=== PATIENT | male | born 1985 | race Two or more races ===

== ENCOUNTER 2023-10-30 18:38 | Inpatient (IN) | payer OTHER, SELFPAY ==
[2023-10-30] VITALS (18 sets, daily range): BP systolic 68–128; BP diastolic 34–72; PULSE 88–126; RESP 16–20; TEMP 36.9–37.9; O2SAT 90–98; BMI 34.5
--- NOTE | 2023-10-30 | ECG_ITS ---
Test Reason : CHEST PAIN Blood Pressure : / mmHG Vent. Rate : 117 BPM Atrial Rate : 117 BPM P-R Int : 132 ms QRS Dur : 084 ms QT Int : 300 ms P-R-T Axes : 047 029 016 degrees QTc Int : 418 ms Sinus tachycardia Otherwise normal ECG No previous ECGs available Referred By: Generic ED Physician Electronically Signed By:Ambrosio Casey
--- NOTE | ~2023-10-30 | XR_ITS ---
EXAMINATION: XR CHEST CLINICAL INFORMATION: Pneumonia COMPARISON: None available. TECHNIQUE: Frontal view of the chest was obtained. FINDINGS: There is mild cardiac prominence. No evidence of CHF. There is dense consolidation seen in the right mid to upper lung. The left lung is clear. No pleural effusions. XR/XR chest 1V IMPRESSION: Right upper lobe pneumonia.
--- NOTE | ~2023-10-30 | CT_ITS ---
EXAMINATION: CT ANGIOGRAM OF THE CHEST WITH AND WITHOUT CONTRAST (CT PULMONARY ANGIOGRAM FOR PE) CT ABDOMEN AND PELVIS WITHOUT AND WITH CONTRAST CLINICAL INFORMATION: Reason for Exam Hypoxia/ Elevated lactic COMPARISON: Chest x-ray 10/30/2023 TECHNIQUE: Prior to contrast administration, noncontrast localization images were obtained. Noncontrast imaging of the abdomen and pelvis was also performed. Subsequently, multidetector volumetric imaging was performed from the thoracic inlet to the pubic symphysis through the chest, abdomen, and pelvis following the administration of 85 mL Omnipaque 350 intravenous contrast. Images through the chest were obtained during the pulmonary arterial phase of contrast enhancement. The abdomen and pelvis were imaged during the portal venous phase. No contrast reaction reported Sagittal, coronal, and MIP oblique sagittal (through the chest only) reformatted images were obtained on the CT workstation, uploaded to PACS, and reviewed. This CT examination was performed using dose optimization techniques as appropriate, variously including the following: *Automated exposure control *Adjustment of mA and/or kV according to patient size (this includes techniques or standardized protocols for targeted exams where dose is matched to indication/reason for exam; i.e. extremities or head) *Use of iterative reconstruction technique Total exam dose-length product: 1958 mGy-cm FINDINGS: QUALITY OF STUDY/CONTRAST BOLUS: Satisfactory. PULMONARY ARTERIES: No central or proximal segmental pulmonary embolus is seen. There is limited evaluation of the more distal vasculature due to bolus timing and respiratory motion artifact. THORACIC AORTA: No aneurysm. LUNG: There is dense consolidation within the predominantly posterior right upper lobe, suspicious for pneumonia. Groundglass opacity is present in the right middle lobe. Additional patchy consolidation is present in the superior and posterior right lower lobe. Mild dependent opacity in the posterior left upper lobe could reflect mild consolidation or atelectasis. PLEURA: No pleural effusion or pneumothorax. MEDIASTINUM: The visualized thyroid gland is unremarkable. Mildly prominent paratracheal and subcarinal lymph nodes are noted, which may be reactive. Cardiac size is within normal limits; no pericardial effusion. CHEST WALL/AXILLA: No axillary or internal mammary lymphadenopathy. ABDOMEN/PELVIS: LIVER, GALLBLADDER AND BILIARY TREE: The liver is mildly enlarged measuring approximately 21 cm in length. No focal hepatic lesion or biliary ductal dilatation is present. Questionable slight mural prominence of the gallbladder. No densely calcified gallstones are seen. PANCREAS: Normal; no mass or surrounding fluid. SPLEEN: Normal size. No focal lesion. ADRENAL GLANDS: Normal; no mass. KIDNEYS AND URETERS: Bilateral nephrograms are symmetric. No hydronephrosis or obstructing calculus identified. GASTROINTESTINAL TRACT: No evidence of bowel obstruction. There is mural prominence throughout the collapsed descending and sigmoid colon which could be due to underdistention, though the possibility of a mild colitis cannot be excluded. The appendix is unremarkable. No free fluid or free air is seen. ABDOMINAL WALL: No significant hernia is appreciated. LYMPHOVASCULAR STRUCTURES: No lymphadenopathy. The aorta is unremarkable. BLADDER: No focal mass or wall thickening seen. No bladder calculi. PELVIC VISCERA: Unremarkable. OSSEOUS STRUCTURES: No acute or suspicious osseous abnormality. CT/CT abdomen pelvis wo/w IV con IMPRESSION: 1. No central or proximal segmental pulmonary embolus identified. Limited evaluation of the more distal vasculature due to bolus timing and respiratory motion artifact. 2. Dense consolidation in the right upper lobe, suspicious for pneumonia. Additional patchy consolidation in the right lower lobe. Radiographic follow-up is recommended after treatment/resolution of symptoms. 3. Mildly prominent mediastinal lymph nodes, which may be reactive. 4. Questionable slight mural prominence of the gallbladder, of uncertain clinical significance. If there is clinical concern for cholecystitis, this would be better assessed with ultrasound. 5. Mural prominence of the descending and sigmoid colon which could be due to underdistention, though the possibility of a mild colitis cannot be excluded. VTE: negative.
--- NOTE | 2023-10-30 18:52 | PC.NURSE ---
Denies SI/Hi, placed on 2 liters NC sating 95%
--- NOTE | 2023-10-30 19:31 | PC.NURSE ---
this rn assumed care of pt, pt from [facility] on sec. 12 reporting onset of fever, chills, body ache and headache x2 days, reports he in unsure of if any residents are sick. pt currently denies si/hi. pt changed into green gown for safety, sitter at bedside. pt swabbed and sent to lab.
--- NOTE | 2023-10-30 20:00 | PC.NURSE ---
Spenser LYNN aware of pt vital signs at this time, Spenser LYNN at bedside.
[2023-10-30 20:04] LABS: Influenza A PCR NEGATIVE (Negative); Influenza B PCR NEGATIVE (Negative); Resp Syncy Virus RNA Qual PCR NEGATIVE (Negative); SARS COV2 PCR INHOUSE NEGATIVE (Negative)
[2023-10-30] MEDS: Albuterol/Iprat 2.5/0.5MG 3 ML AMPUL.NEB INHALE (20:10)
[2023-10-30] MEDS: 0.9 % Sodium Chloride 1,000 ML 999 ML IV ×4 (20:20→21:34)
[2023-10-30 20:21] LABS: Basophils Absolute Auto 0.1 X10*3/uL (0.0-0.2); Basophils Percent Auto 0.3 % (0-2); Eosinophils Percent Auto 0.1 % (0-4); Hematocrit 36.2 % (42.0-52.0); Hemoglobin 12.3 g/dl (14.0-18.0); Imm Gran Abs Auto 0.17 X10*3/uL (0.00-0.03); Lymphocytes Absolute Auto 0.9 X10*3/uL (1.2-4.9); Lymphocytes Percent Auto 5.3 % (20-40); MANUAL DIFF FLAG SCAN; Mean Corpuscular Hemoglobin 25.5 pg (27.0-33.0); Mean Corpuscular Volume 74.9 fL (80.0-98.0); Mean Platelet Volume 10.8 fL (9.4-12.4); Monocytes Absolute Auto 1.9 X10*3/uL (0.1-1.2); Monocytes Percent Auto 11.3 % (2-11); Platelet Count 193 X10*3/uL (160-400); Red Blood Count 4.83 X10*6/uL (4.60-5.80); Red Cell Distribution Width 15.3 % (11.0-16.0); SCAN SMEAR FLAG 1
--- NOTE | 2023-10-30 20:31 | ED.GENADULT ---
HPI - General Adult General Chief complaint: Upper Respiratory Symptoms Stated complaint: Bodyaches, from [place] Time Seen by Provider: 10/30/23 19:54 Source: patient Mode of arrival: ambulatory Limitations: no limitations History of Present Illness HPI narrative: 38-year-old male with history of asthma can substance abuse presents to the ED for URI symptoms for couple of days. Patient states body aches, chills, night sweats, and coughing. Patient states last drug use was 5 years ago. Related Data Home Medications ?Medication ?Instructions ?Recorded ?Confirmed albuterol sulfate 90 mcg/actuation 2 puff inhalation Q4-6H PRN sob 10/31/23 10/31/23 aerosol inhaler (Ventolin HFA) alprazolam 0.5 mg tablet 1 mg PO TID 10/31/23 10/31/23 atorvastatin 80 mg tablet 80 mg PO DAILY 10/31/23 10/31/23 buprenorphine 8 mg-naloxone 2 mg 1 film sublingual TID 10/31/23 10/31/23 sublingual film (Suboxone) bupropion HCl 75 mg tablet 75 mg PO BID 10/31/23 10/31/23 clonidine HCl 0.1 mg tablet 0.1 mg PO TID 10/31/23 10/31/23 diphenhydramine HCl 50 mg capsule 50 mg PO BEDTIME PRN Rash 10/31/23 10/31/23 (Banophen) divalproex 500 mg tablet,delayed 500 mg PO TID 10/31/23 10/31/23 release docusate sodium 50 mg capsule 50 mg PO BID 10/31/23 10/31/23 mirtazapine 15 mg tablet 15 mg PO BEDTIME 10/31/23 10/31/23 montelukast 10 mg tablet 10 mg PO DAILY 10/31/23 10/31/23 multivitamin 1 tab PO DAILY 10/31/23 10/31/23 prazosin 1 mg capsule 7 mg PO BEDTIME 10/31/23 10/31/23 quetiapine 200 mg tablet 200 mg PO BEDTIME 10/31/23 10/31/23 Allergies Allergy/AdvReac Type Severity Reaction Status Date / Time lactase [From Dairy Aid] AdvReac Unknown Verified 10/30/23 18:49 Review of Systems Review of Systems: Coughing, body aches, night sweats, chills Yes all other systems are reviewed and are negative [facility] Past Medical History Medical History (Updated 10/31/23 @ 02:10 by LEAH Kline) History of substance abuse Anxiety Social History Social History Patient Tobacco Use Status: Never used Tobacco Smoked in Last 30 Days: No Use of substances other than those prescribed or required for medical reasons: No Currently Displaying Signs/Symptoms of Drug Intoxication Withdrawal: No Advance Directives: No Advance Directives Information Provided: No Nutrition Risks: No Nutritional Risk Physical Exam ED Vital Signs: Vital Signs - 24 hr 10/30/23 18:48 10/30/23 19:20 10/30/23 19:34 Temperature 100.2 F 99.6 F Pulse Rate 116 H 107 H Respiratory Rate 18 20 Blood Pressure 122/72 104/55 L Pulse Oximetry 92 93 93 Oxygen Delivery Method Room Air Room Air Room Air Oxygen Flow Rate 10/30/23 20:21 10/30/23 20:36 10/30/23 20:40 Temperature 98.9 F Pulse Rate 98 100 Respiratory Rate 18 20 Blood Pressure 94/47 L Pulse Oximetry 91 L 94 Oxygen Delivery Method Room Air Nasal Cannula Oxygen Flow Rate 2 10/30/23 21:40 10/30/23 22:26 10/30/23 22:36 Temperature 98.8 F Pulse Rate 98 89 91 Respiratory Rate 20 20 18 Blood Pressure 76/34 L 78/36 L 71/36 L Pulse Oximetry 96 98 98 Oxygen Delivery Method Nasal Cannula Nasal Cannula Nasal Cannula Oxygen Flow Rate 2 2 2 10/30/23 22:40 10/30/23 22:52 10/30/23 23:09 Temperature 98.4 F Pulse Rate 92 91 91 Respiratory Rate 17 19 16 Blood Pressure 68/38 L 86/41 L 86/41 L Pulse Oximetry 97 96 97 Oxygen Delivery Method Nasal Cannula Nasal Cannula Nasal Cannula Oxygen Flow Rate 2 2 2 10/30/23 23:24 10/30/23 23:29 10/30/23 23:37 Temperature Pulse Rate 89 88 90 Respiratory Rate Blood Pressure 77/36 L 79/35 L 82/45 L Pulse Oximetry Oxygen Delivery Method Oxygen Flow Rate 10/30/23 23:46 10/30/23 23:56 10/31/23 00:05 Temperature Pulse Rate 91 88 88 Respiratory Rate Blood Pressure 98/51 L 110/66 114/62 Pulse Oximetry Oxygen Delivery Method Oxygen Flow Rate 10/31/23 00:15 10/31/23 00:21 10/31/23 00:29 Temperature Pulse Rate 90 90 83 Respiratory Rate Blood Pressure 101/59 L 106/61 121/71 Pulse Oximetry Oxygen Delivery Method Oxygen Flow Rate 10/31/23 00:41 Temperature Pulse Rate 86 Respiratory Rate Blood Pressure 119/71 Pulse Oximetry Oxygen Delivery Method Oxygen Flow Rate BMI result Body Mass Index 34.5 Const General: cooperative, healthy appearing, comfortable, no acute distress, well developed, alert and awake Orientation/consciousness: oriented to person, oriented to place, oriented to time and patient oriented x3 [facility] Head: Yes normal to inspection, Yes No palpable skull fracture present, Yes normocephalic, Yes atraumatic and No abrasion Eyes General: appearance normal, both eyes and all related structures Neck Neck: Yes normal visual inspection, Yes full ROM, Yes no lymphadenopathy, Yes no meningeal signs, Yes trachea midline, Yes supple, No anterior neck swelling and No tender Chest Chest palpation & inspection: normal inspection of the chest and normal palpation of entire chest wall Resp Auscultation: wheezes (positive for wheezing) Cardio Jugular venous distension: no JVD Heart sounds: S1 normal heart sound present and S2 normal heart sound present GI Inspection: Yes normal to inspection Palpation (GI): Soft to palpation, not firm, nontender, no guarding and not rigid General: No CVA tenderness and Yes no CVA tenderness Back/Spine/Pelvis Back: no CVA tenderness, No CVA tenderness and No back tenderness Skin General skin exam: no rashes or lesions noted, elasticity normal and turgor normal Neuro General: oriented to person, oriented to place, oriented to time, patient oriented x3, gait normal, tone normal, moves all extremities, Normal light touch and pain sensation, no meningeal signs, no focal motor deficits, CN's II-XI intact bilaterally and normal sensation to monofilament Extrem General: Yes normal to inspection, Yes full ROM and Yes capillary refill normal Psych Appearance: grossly normal, well kempt and not disheveled Medications Administered Generic Name Dose Route Start Last Admin Trade Name Freq PRN Reason Stop Dose Admin Acetaminophen 650 mg 10/31/23 02:20 10/31/23 11:54 Acetaminophen 325 Mg Tablet PO 650 mg Q6H PRN Administration Pain, Moderate(Pain Scale 4-6) Alprazolam 1 mg 10/31/23 12:00 10/31/23 16:06 Alprazolam 0.5 Mg Tablet PO 1 mg TID HUSSEIN Administration Buprenorphine/Naloxone 1 film 10/31/23 09:30 10/31/23 10:15 Buprenorphine/Naloxone 8/2 Mg Film SUBLINGUAL 1 film BID HUSSEIN Administration Bupropion HCl 75 mg 10/31/23 09:30 10/31/23 11:51 Bupropion Hcl 75 Mg Tablet PO Not Given BID HUSSEIN Divalproex Sodium 500 mg 10/31/23 09:30 10/31/23 16:06 Divalproex Sodium 500 Mg Tablet. PO 500 mg TID HUSSEIN Administration Enoxaparin Sodium 40 mg 10/31/23 09:00 10/31/23 10:15 Enoxaparin Sodium 40 Mg/0.4 Ml Syringe SUBCUT 40 mg Q24H HUSSEIN Administration Levofloxacin 750 mg in 150 mls @ 100 mls/hr 10/31/23 09:00 10/31/23 11:07 Levaquin IV Infused Q24H HUSSEIN Infusion Ondansetron HCl 4 mg 10/31/23 13:40 10/31/23 13:44 Ondansetron Hcl 4 Mg/2 Ml Vial IVPUSH 4 mg Q6H PRN Administration Nausea Discontinued Medications Generic Name Dose Route Start Last Admin Trade Name Freq PRN Reason Stop Dose Admin Albuterol/Ipratropium 3 ml 10/30/23 20:02 10/30/23 20:10 Albuterol/Iprat 2.5/0.5mg 3 Ml Ampul.Neb INHALE 10/30/23 20:03 3 ml ONCE ONE Administration Sodium Chloride 1,000 mls @ 999 mls/hr 10/30/23 20:00 10/30/23 22:44 Ns IV 10/30/23 21:00 Infused .Q1H1M STA Infusion Sodium Chloride 1,000 mls @ 999 mls/hr 10/30/23 20:01 10/30/23 22:22 Ns IV 10/30/23 21:01 Infused .Q1H1M STA Infusion Sodium Chloride 1,000 mls @ 999 mls/hr 10/30/23 20:01 10/30/23 22:22 Ns IV 10/30/23 21:01 Infused .Q1H1M STA Infusion Ceftriaxone Sodium 1 gm/ 50 mls @ 100 mls/hr 10/30/23 20:30 10/30/23 21:08 Sodium Chloride IV 10/30/23 20:59 Infused ONCE ONE Infusion Azithromycin 500 mg/ Sodium 250 mls @ 125 mls/hr 10/30/23 20:30 10/30/23 23:18 Chloride IV 10/30/23 22:29 Infused ONCE ONE Infusion Sodium Chloride 1,000 mls @ 999 mls/hr 10/30/23 21:31 10/30/23 22:44 Ns IV 10/30/23 22:31 Infused .Q1H1M STA Infusion Norepinephrine Bitartrate 8 mg in 250 mls @ 0 mls/hr 10/30/23 23:15 10/31/23 13:37 Levophed IV Infused .Q0M HUSSEIN Titration Protocol Per Protocol Piperacillin Sod/Tazobactam 100 mls @ 200 mls/hr 10/31/23 01:00 10/31/23 07:05 Sod 4.5 gm/ Sodium Chloride IV Infused Q6H HUSSEIN Infusion Vancomycin HCl 1,000 mg/ 270 mls @ 270 mls/hr 10/31/23 00:46 10/31/23 04:00 Sodium Chloride IV 10/31/23 01:45 Not Given ONCE ONE Vancomycin HCl 2,000 mg in 500 mls @ 250 mls/hr 10/31/23 01:15 10/31/23 05:12 Vancomycin/Ns IV 10/31/23 03:14 Infused ONCE ONE Infusion Albumin Human 100 mls @ 100 mls/hr 10/31/23 02:54 10/31/23 05:57 Kedbumin 25 % IV 10/31/23 03:53 Infused ONCE ONE Infusion Magnesium Sulfate 2 gm in 50 mls @ 25 mls/hr 10/31/23 06:19 10/31/23 08:44 Magnesium Sulfate/H2o IV 10/31/23 08:18 Infused ONCE ONE Infusion Calcium Gluconate 2 gm in 100 mls @ 50 mls/hr 10/31/23 08:00 10/31/23 10:11 Calcium Gluconate IV 10/31/23 09:59 Infused ONCE ONE Infusion Magnesium Sulfate 2 gm in 50 mls @ 25 mls/hr 10/31/23 10:00 10/31/23 11:31 Magnesium Sulfate/H2o IV 10/31/23 11:59 Infused ONCE ONE Infusion Iohexol 85 ml 10/31/23 01:12 10/31/23 01:12 Iohexol 350 Mg/Ml 100 Ml Infus..Btl IV 10/31/23 01:13 85 ml ONCE ONE Administration Lorazepam 1 mg 10/31/23 02:03 10/31/23 02:18 Lorazepam 2 Mg/Ml Vial IVPUSH 10/31/23 02:04 1 mg ONCE ONE Administration Ondansetron HCl 4 mg 10/31/23 02:48 10/31/23 02:56 Ondansetron Hcl 4 Mg/2 Ml Vial IVPUSH 10/31/23 02:49 4 mg ONCE ONE Administration Medical Decision Making Medical Decision Making [facility] Narrative: 38-year-old male presents to ED for URI symptoms. Patient is hypoxic on room air. Lungs positive for wheezing. Patient to be treated as pneumonia. sepsis protocol called. Antibiotics ordered. 4Fluids ordered. Patient hypotensive no improvement will place on pressors. Sepsis protocol called. 12:20am: Case was discussed with the double back operator Dr. Najera for admission for septic shock due to pneumonia. Blood pressure 106/63 while being on Levophed. Differential Diagnosis Differential Diagnoses: The differential diagnosis associated with the presentation includes Admission/Observation Consideration of admission/observation: Escalation of care including admission/observation considered Consult Healthcare Provider Management of the patient was discussed with: Automotive Manufacturer (Dr. Najera) Lab Data [facility] Lab Attestation statement: I reviewed the patient's lab results. 10/31/23 05:45 10/31/23 12:32 Labs: Lab Results 10/30/23 10/30/23 10/30/23 Range/Units 19:18 20:12 20:13 WBC 17.0 H (4.8-10.8) X10*3/uL RBC 4.83 (4.60-5.80) X10*6/uL Hgb 12.3 L (14.0-18.0) g/dl Hct 36.2 L (42.0-52.0) % MCV 74.9 L (80.0-98.0) fL MCH 25.5 L (27.0-33.0) pg MCHC 34.0 (31.0-36.0) g/dl RDW 15.3 (11.0-16.0) % Plt Count 193 (160-400) X10*3/uL MPV 10.8 (9.4-12.4) fL Immature Gran % (Auto) 1.0 H (0.0-0.4) % Neut % (Auto) 82.0 H (45-73) % Lymph % (Auto) 5.3 L (20-40) % Moody % (Auto) 11.3 H (2-11) % Eos % (Auto) 0.1 (0-4) % Baso % (Auto) 0.3 (0-2) % Lymph # (Auto) 0.9 L (1.2-4.9) X10*3/uL Moody # (Auto) 1.9 H (0.1-1.2) X10*3/uL Eos # (Auto) 0.0 (0.0-0.4) X10*3/uL Baso # (Auto) 0.1 (0.0-0.2) X10*3/uL Abs Immat Gran (auto) 0.17 H (0.00-0.03) X10*3/uL Absolute Neuts (auto) 14.0 H (2.0-8.3) x10*3/uL Absolute Nucleated RBC 0.000 (0.0-0.012) X10*3/uL Nucleated RBC % (auto) 0.0 (0.0-0.2) /100WBC Smear Tech's Comments VERIFIED Sodium 132 L (135-145) mmol/L Potassium 5.4 H (3.3-5.1) mmol/L Chloride 98 (96-108) mmol/L Carbon Dioxide 22 (22-29) mmol/L Anion Gap 17 (12-20) BUN 17 H (9-16) mg/dL Creatinine 1.32 (0.5-1.4) mg/dL Estim Creat Clear Calc 87.3 Estimated GFR > 60 Random Glucose 119 H (60-115) mg/dL Lactic Acid 3.3 H* (0.5-2.0) mmol/L Lactic Acid F/U @ 2Hr (0.5-2.0) mmol/L Calcium 9.3 (8.4-10.2) mg/dL Total Bilirubin 0.9 (0.0-1.0) mg/dL AST 29 (5-37) U/L ALT 13 (0-40) U/L Alkaline Phosphatase 55 (39-117) U/L Total Protein 7.3 (6.5-8.0) g/dL Albumin 3.6 (3.5-5.0) g/dL Urine Color Urine Appearance Urine pH (5.0-9.0) Ur Specific [place] (1.005-1.025) Urine Protein (Neg-Trace) mg/dL Urine Glucose (UA) (Negative) mg/dL Urine Ketones (Negative) mg/dL Urine Blood (Negative) Urine Nitrite (Negative) Ur Leukocyte Esterase (Negative) Urine RBC (0-2) /HPF Urine WBC (0-5) /HPF Ur Squamous Epith Cells (0-2) /HPF Urine Bacteria (None Seen) Hyaline Casts (0-2) /LPF Urine Opiates Screen (Not Detect) Ur Buprenorphine Scrn (Not Detect) ng/mL Ur Oxycodone Screen (Not Detect) ng/mL Urine Methadone Screen (Not Detect) ng/mL Urine Fentanyl Screen (Not Detect) Ur Barbiturates Screen (Not Detect) Ur Phencyclidine Scrn (Not Detect) Ur Amphetamines Screen (Not Detect) U Benzodiazepines Scrn (Not Detect) Urine Cocaine Screen (Not Detect) U Marijuana (THC) Screen (Not Detect) Influenza Type A (PCR) NEGATIVE (Negative) Influenza Type B (PCR) NEGATIVE (Negative) RSV RNA Qual (PCR) NEGATIVE (Negative) SARS-CoV-2 RNA (RT-PCR) NEGATIVE (Negative) 10/30/23 10/30/23 Range/Units 20:31 22:47 WBC (4.8-10.8) X10*3/uL RBC (4.60-5.80) X10*6/uL Hgb (14.0-18.0) g/dl Hct (42.0-52.0) % MCV (80.0-98.0) fL MCH (27.0-33.0) pg MCHC (31.0-36.0) g/dl RDW (11.0-16.0) % Plt Count (160-400) X10*3/uL MPV (9.4-12.4) fL Immature Gran % (Auto) (0.0-0.4) % Neut % (Auto) (45-73) % Lymph % (Auto) (20-40) % Moody % (Auto) (2-11) % Eos % (Auto) (0-4) % Baso % (Auto) (0-2) % Lymph # (Auto) (1.2-4.9) X10*3/uL Moody # (Auto) (0.1-1.2) X10*3/uL Eos # (Auto) (0.0-0.4) X10*3/uL Baso # (Auto) (0.0-0.2) X10*3/uL Abs Immat Gran (auto) (0.00-0.03) X10*3/uL Absolute Neuts (auto) (2.0-8.3) x10*3/uL Absolute Nucleated RBC (0.0-0.012) X10*3/uL Nucleated RBC % (auto) (0.0-0.2) /100WBC Smear Tech's Comments Sodium (135-145) mmol/L Potassium (3.3-5.1) mmol/L Chloride (96-108) mmol/L Carbon Dioxide (22-29) mmol/L Anion Gap (12-20) BUN (9-16) mg/dL Creatinine (0.5-1.4) mg/dL Estim Creat Clear Calc Estimated GFR Random Glucose (60-115) mg/dL Lactic Acid (0.5-2.0) mmol/L Lactic Acid F/U @ 2Hr 4.4 H* (0.5-2.0) mmol/L Calcium (8.4-10.2) mg/dL Total Bilirubin (0.0-1.0) mg/dL AST (5-37) U/L ALT (0-40) U/L Alkaline Phosphatase (39-117) U/L Total Protein (6.5-8.0) g/dL Albumin (3.5-5.0) g/dL Urine Color Dark Yellow Urine Appearance Clear Urine pH 7.0 (5.0-9.0) Ur Specific [place] 1.020 (1.005-1.025) Urine Protein 30 (1+) H (Neg-Trace) mg/dL Urine Glucose (UA) Negative (Negative) mg/dL Urine Ketones Trace (Negative) mg/dL Urine Blood Negative (Negative) Urine Nitrite Negative (Negative) Ur Leukocyte Esterase Trace H (Negative) Urine RBC 0-2 (0-2) /HPF Urine WBC 0-5 (0-5) /HPF Ur Squamous Epith Cells 0-2 (0-2) /HPF Urine Bacteria None Seen (None Seen) Hyaline Casts 0-2 (0-2) /LPF Urine Opiates Screen Not Detected (Not Detect) Ur Buprenorphine Scrn Positive H (Not Detect) ng/mL Ur Oxycodone Screen Not Detected (Not Detect) ng/mL Urine Methadone Screen Not Detected (Not Detect) ng/mL Urine Fentanyl Screen Not Detected (Not Detect) Ur Barbiturates Screen Not Detected (Not Detect) Ur Phencyclidine Scrn Not Detected (Not Detect) Ur Amphetamines Screen Not Detected (Not Detect) U Benzodiazepines Scrn POSITIVE H (Not Detect) Urine Cocaine Screen Not Detected (Not Detect) U Marijuana (THC) Screen Not Detected (Not Detect) Influenza Type A (PCR) (Negative) Influenza Type B (PCR) (Negative) RSV RNA Qual (PCR) (Negative) SARS-CoV-2 RNA (RT-PCR) (Negative) ABG Data Attestation ABG: I personally reviewed and interpreted this ABG as follows: Independent Interpretation I performed an independent interpretation of an: EKG (Sinus), Plain X-Ray and Ultrasound Independent Historian Clinical information obtained from an independent historian. History obtained from or confirmed by: Other (Patient) External Record Review External record reviewed: Other (Prior visit) Prescription Management I considered prescription management with: Antibiotic Critical Care Time Critical Care Time Critical Care Time: Yes Total Critical Care Time: 60 Attestation: Sepsis. Treated as pneumonia. Chest x-ray labs antibiotics ordered. Fluids ordered. Placed on pressors Discharge Plan Discharge Clinical Impression: Septic shock, Pneumonia Patient Disposition: Admitted As Inpatient Interventions: Admission Worksheet (ED) Last Done: 10/31/23 02:11 Discharge Date/Time: 10/31/23 02:13
[2023-10-30] MEDS: cefTRIAXone sodium 1 GM in 0.9 % Sodium Chloride 50 ML IV (20:38)
[2023-10-30 20:39] LABS: Lactic Acid 3.3 mmol/L (0.5-2.0)
[2023-10-30 20:39] LABS: Alanine Aminotransferase 13 U/L (0-40); Albumin Level 3.6 g/dL (3.5-5.0); Alkaline Phosphatase 55 U/L (39-117); Anion Gap 17 (12-20); Aspartate Amino Transferase 29 U/L (5-37); Bilirubin Total 0.9 mg/dL (0.0-1.0); Blood Urea Nitrogen 17 mg/dL (9-16); Calcium 9.3 mg/dL (8.4-10.2); Carbon Dioxide 22 mmol/L (22-29); Chloride 98 mmol/L (96-108); Creatinine Clr Calc Pharmacy 87.3; Estimated Glomerular Filt Rate > 60; Glucose Random 119 mg/dL (60-115); Potassium 5.4 mmol/L (3.3-5.1); Sodium 132 mmol/L (135-145); Total Protein 7.3 g/dL (6.5-8.0)
[2023-10-30 20:39] LABS: Appearance Urine Clear; Color Urine Dark Yellow; Glucose Urine UA Negative (Negative); Leukocyte Esterase Urine Trace (Negative); Nitrite Urine Negative (Negative); UMIC TRIGGER UACC YES; Urine Blood Negative (Negative); Urine Ketones Trace mg/dL (Negative); Urine Protein 30 (1+) mg/dL (Neg-Trace)
--- NOTE | 2023-10-30 20:41 | PC.NURSE ---
this rn noted to Spenser LYNN pt vital sings and labs, plan for sepsis alert at this time per pt meeting criteria.
[2023-10-30 20:43] LABS: Bacteria Urine None Seen (None Seen); Hyaline Casts Urine 0-2 /LPF (0-2); RBC Urine 0-2 /HPF (0-2); Squamous Epithelial Cell Urine 0-2 /HPF (0-2); WBC Urine 0-5 /HPF (0-5)
[2023-10-30 20:53] LABS: Amphetamine Screen Urine Not Detected (Not Detect); Barbiturates, Urine Not Detected (Not Detect); Benzodiazepines Screen Urine POSITIVE (Not Detect); Buprenorphine Scr Positive (Not Detect); Cannabinoid Screen Urine Not Detected (Not Detect); Cocaine Screen Urine Not Detected (Not Detect); Fentanyl, urine Not Detected (Not Detect); Methadone Screen, Urine Not Detected (Not Detect); Opiate Screen Urine Not Detected (Not Detect); Oxycodone Screen Urine Not Detected (Not Detect); Phencyclidine Screen Urine Not Detected (Not Detect)
[2023-10-30 21:07] LABS: SLIDE REVIEW VERIFIED
[2023-10-30] MEDS: Azithromycin 500 MG in 0.9 % Sodium Chloride 250 ML 125 MG IV (21:12)
[2023-10-30 22:18] LABS: Reflex Lactate? Lactic Acid Added
[2023-10-30 23:14] LABS: ~Lactic Acid-LAB USE ONLY 4.4 mmol/L (0.5-2.0)
[2023-10-30] MEDS: Norepinephrine Bitartrate/D5W 8 MG/250 ML PLAST..BAG 9.66 MG IV (23:24)
[2023-10-31] VITALS (36 sets, daily range): BP systolic 100–151; BP diastolic 33–103; PULSE 81–105; RESP 15–24; TEMP 36.6–37.5; O2SAT 93–97
--- NOTE | 2023-10-31 00:43 | PC.NURSE ---
20G placed in left ac at this time, pt to CT.
--- NOTE | 2023-10-31 00:50 | P.HPCC_ITS ---
History of Present Illness Date of Service: 10/31/23 Attending physician on admission: Vidya Najera Chief Complaint: URI 38-year-old male with a past medical history of anxiety and prior history of substance abuse on? Suboxone who presented to the emergency department with complaints of upper respiratory symptoms.? Patient from a facility, reported couple of days of? body aches, chills, night sweats and coughing.?? In the emergency department patient?s? initial vital signs stable,? hypoxic to 91% on room air, placed on 2 L via nasal cannula, but later patient dropped blood pressure to systolic of 70s? received 4 L? bolus of normal saline and blood pressure continued to be low, required initiation of pressors Laboratory data was significant for WBC 17,? serum sodium 132, potassium 5.4, lactic 3.3.? Urine toxicology positive for Suboxone and benzos,? patient does report taking Xanax for anxiety.?? Imaging:? ?Chest x-ray concerning for right upper lobe pneumonia ED course:? ?Received 4 L bolus, ceftriaxone 1 g, azithromycin 500, and started on Levophed.?? Patient will be admitted to ICU for management of septic shock Review of Systems 2 Review of Systems: Yes all other systems are reviewed and are negative PMF Past Medical History Medical History (Updated 10/31/23 @ 02:10 by LEAH Kline) History of substance abuse Anxiety Social History Social History Patient Tobacco Use Status: Never used Tobacco Smoked in Last 30 Days: No Use of substances other than those prescribed or required for medical reasons: No Advance Directives: No Advance Directives Information Provided: No Nutrition Risks: No Nutritional Risk Meds Allergies Allergy/AdvReac Type Severity Reaction Status Date / Time lactase [From Dairy Aid] AdvReac Unknown Verified 10/30/23 18:49 Active Medications: Current Medications Enoxaparin Sodium (Enoxaparin Sodium 40 Mg/0.4 Ml Syringe) 40 mg SUBCUT Q24H HUSSEIN Norepinephrine Bitartrate (Levophed) 8 mg in 250 mls @ 0 mls/hr IV .Q0M HUSSEIN; Protocol Last Titration: 10/31/23 00:41 Dose: 0.13 mcg/kg/min, 25.11 mls/hr Piperacillin Sod/Tazobactam (Sod 4.5 gm/ Sodium Chloride) 100 mls @ 200 mls/hr IV Q6H HUSSEIN Vancomycin HCl 1,000 mg/ (Sodium Chloride) 270 mls @ 270 mls/hr IV ONCE ONE Stop: 10/31/23 01:45 Physical Exam 2 Vital Signs: Vital Signs: Last Vital Signs Temp 98.4 F 10/30/23 22:40 Pulse 86 10/31/23 00:41 Resp 16 10/30/23 23:09 BP 119/71 10/31/23 00:41 Pulse Ox 97 10/30/23 23:09 O2 Del Method Nasal Cannula 10/30/23 23:09 O2 Flow Rate 2 10/30/23 23:09 BMI result Body Mass Index 34.5 Focused assesment performed at 0030 ?General:? Alert oriented x3 no acute distress.? Speaking full sentences.? Speech is well articulated, thought process is coherent.? Following all commands. ?HEENT:? Head is normocephalic, atraumatic, pupils equal round reactive to light accommodation bilaterally.? Extraocular movements appear intact.? Buccal mucosa is dry, Neck is supple ?Cardiac:? Clear S1-S2, no murmurs rubs or gallops. ?Pulmonary:? Clear to auscultation, no wheezes, rales or rhonchi. ?Abdomen:? ?Abdomen soft, non-tender, non-distended. Normal bowel sounds. No pulsatile mass. No hepatosplenomegaly. ?Musculoskeletal:? Moving all 4 extremities upon request a major joints, there is no crepitus or tenderness.? The strength is 5/5 bilaterally and throughout all 4 extremities.? Gait not assessed at this point. ?Neurologic:? cranial nerves 2-12 are grossly intact.? No focal deficits noted. Motor strength as above.?? ?Skin:? Intact, no lesions, edema, erythema, clubbing or cyanosis.? No ulcers. Vascular:? 2+ pulses upper and lower extremities distally. Results Labs 10/30/23 20:13 10/30/23 20:13 Labs: Laboratory Results - last 24 hr 10/30/23 10/30/23 10/30/23 19:18 20:12 20:13 MCV 74.9 L MCH 25.5 L MCHC 34.0 RDW 15.3 Plt Count 193 MPV 10.8 Immature Gran % (Auto) 1.0 H Neut % (Auto) 82.0 H Lymph % (Auto) 5.3 L [place] % (Auto) 11.3 H Eos % (Auto) 0.1 Baso % (Auto) 0.3 Lymph # (Auto) 0.9 L [place] # (Auto) 1.9 H Eos # (Auto) 0.0 Baso # (Auto) 0.1 Abs Immat Gran (auto) 0.17 H Absolute Neuts (auto) 14.0 H Absolute Nucleated RBC 0.000 Nucleated RBC % (auto) 0.0 Smear Tech's Comments VERIFIED Anion Gap 17 Estim Creat Clear Calc 87.3 Estimated GFR > 60 Random Glucose 119 H Lactic Acid 3.3 H* Lactic Acid F/U @ 2Hr Calcium 9.3 Total Bilirubin 0.9 AST 29 ALT 13 Alkaline Phosphatase 55 Total Protein 7.3 Albumin 3.6 Urine Color Urine Appearance Urine pH Ur Specific [place]ick[place] Urine Protein Urine Glucose (UA) Urine Ketones Urine Blood Urine Nitrite Ur Leukocyte Esterase Urine RBC Urine WBC Ur Squamous Epith Cells Urine Bacteria Hyaline Casts Urine Opiates Screen Ur Buprenorphine Scrn Ur Oxycodone Screen Urine Methadone Screen Urine Fentanyl Screen Ur Barbiturates Screen Ur Phencyclidine Scrn Ur Amphetamines Screen U Benzodiazepines Scrn Urine Cocaine Screen U Marijuana (THC) Screen Influenza Type A (PCR) NEGATIVE Influenza Type B (PCR) NEGATIVE RSV RNA Qual (PCR) NEGATIVE SARS-CoV-2 RNA (RT-PCR) NEGATIVE 10/30/23 10/30/23 20:31 22:47 MCV MCH MCHC RDW Plt Count MPV Immature Gran % (Auto) Neut % (Auto) Lymph % (Auto) [place] % (Auto) Eos % (Auto) Baso % (Auto) Lymph # (Auto) [place] # (Auto) Eos # (Auto) Baso # (Auto) Abs Immat Gran (auto) Absolute Neuts (auto) Absolute Nucleated RBC Nucleated RBC % (auto) Smear Tech's Comments Anion Gap Estim Creat Clear Calc Estimated GFR Random Glucose Lactic Acid Lactic Acid F/U @ 2Hr 4.4 H* Calcium Total Bilirubin AST ALT Alkaline Phosphatase Total Protein Albumin Urine Color Dark Yellow Urine Appearance Clear Urine pH 7.0 Ur Specific [place]ick[place] 1.020 Urine Protein 30 (1+) H Urine Glucose (UA) Negative Urine Ketones Trace Urine Blood Negative Urine Nitrite Negative Ur Leukocyte Esterase Trace H Urine RBC 0-2 Urine WBC 0-5 Ur Squamous Epith Cells 0-2 Urine Bacteria None Seen Hyaline Casts 0-2 Urine Opiates Screen Not Detected Ur Buprenorphine Scrn Positive H Ur Oxycodone Screen Not Detected Urine Methadone Screen Not Detected Urine Fentanyl Screen Not Detected Ur Barbiturates Screen Not Detected Ur Phencyclidine Scrn Not Detected Ur Amphetamines Screen Not Detected U Benzodiazepines Scrn POSITIVE H Urine Cocaine Screen Not Detected U Marijuana (THC) Screen Not Detected Influenza Type A (PCR) Influenza Type B (PCR) RSV RNA Qual (PCR) SARS-CoV-2 RNA (RT-PCR) Imaging Radiologist's Impressions: Impressions Chest X-Ray 10/30/23 20:20 IMPRESSION: Right upper lobe pneumonia. Assessment and Plan (1) Septic shock: Status: Acute (2) Pneumonia: Status: Acute (3) Acute hypoxic respiratory failure: Status: Acute (4) UCHE (acute kidney injury): Status: Acute (5) Anxiety: Status: Acute Plan 38-year-old male with a past medical history of anxiety and prior history of substance abuse on? Suboxone admitted for management of septic shock Plan: Neuro: No acute issues? Cardiac:?? ?Septic shock:? patient with elevated lactic initially 3.3 elevated to 4.4,? hypotensive.? Fluid resuscitated appropriately but now requiring pressors.? Chest x-ray does show right? upper? lobe pneumonia,? will broaden antibiotic coverage.? We will also obtain chest CTA and abdominal CT to rule out other causes due to cont elevation of lactic acidosis Pulmonary: ??Acute hypoxic respiratory failure:? patient is slightly hypoxic in the emergency department,? does have a right upper lobe pneumonia.? ? But due to hypotension and sudden hypoxemia will obtain a chest CTA Renal:? ??UCHE-? nonoliguric.? Likely hypoperfusion.? ? Received 4 L bolus in the emergency department.? We will continue to trend? renal indices closely Endo:?? ?No acute issues GI:?? ?No acute issues ID: ??Septic shock/ right upper lobe pneumonia:? ? urine are negative,? chest x-ray does show right upper lobe pneumonia, received ceftriaxone and azithromycin in the emergency department.? Will broaden coverage with Zosyn and 1 time vanco dose.? Heme/Onc:? No acute issues. Psych:? No acute issues. Miscellaneous:? No acute issues. Prophylaxis: ? subQ Lovenox, ? no GI prophylaxis at this time CODE:? ? Full code Critical care time: X 90 minutes of critical care time
[2023-10-31 00:51] LABS: Reflex Lactate? 2 Y
[2023-10-31] MEDS: iohexoL 350 MG/ML 100 ML INFUS..BTL 85 ML IV (01:12)
[2023-10-31] MEDS: Piperacillin Sodium/Tazobactam 4.5 GM in 0.9 % Sodium Chloride 100 ML IV ×2 (01:12→06:26)
--- NOTE | 2023-10-31 01:26 | PC.NURSE ---
report given to Ethan in the ICU.
--- NOTE | 2023-10-31 02:12 | PC.NURSE ---
security at bedside, pt refused to take off pants, security searched pt and had pt keep pants. pt transported to ICU.
[2023-10-31 02:14] LABS: Troponin-I High Sensitivity 3.7 ng/L (<3.5-35.0)
[2023-10-31] MEDS: LORazepam 2 MG/ML VIAL 1 MG IVPUSH (02:18)
[2023-10-31] MEDS: Acetaminophen 325 MG TABLET 650 MG PO ×3 (02:44→19:52)
[2023-10-31] MEDS: vancomycin/NS 2,000 MG/500 ML PLAST..BAG 250 MG IV (02:49)
[2023-10-31] MEDS: ondansetron HCL 4 MG/2 ML VIAL IVPUSH ×2 (02:56→13:44)
--- NOTE | 2023-10-31 03:47 | PC.NURSE ---
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 i'M NOT GOING TO PISS IN THE BED ...PATIENT THREW EMPTY URINAL ACROSS THE ROOM....MEDICATED WITH ATIVAN 1 MG IV PER ICU SHEEP BONER...(PATIENT TAKES XANAX 1MG TID AT BASELINE...REMAINED AWAKE BUT CALMER...DANGLED FEET AT BEDSIDE AND VOIDED 725ml LD URINE IN URINAL...ZOSYN PREVIOUSLY INFUSED..VANCOMYCIN INFUSING PER AUG W/O INCIDENT...DIRECTIONAL SURVEY DRAFTER PRESENT BUT UNABLE TO DRAW LAB WORK AFTER REPEATED ATTEMPTS....1:1 SITTER PRESENT D/T PAST SI AND SECTION 12 STATUS..CURRENTLY DOZING..LEVOPHED WEANED TO 0.05 MCG/KG/MIN
[2023-10-31] MEDS: Albumin Human 25 % 100 ML 300 ML IV (05:06)
[2023-10-31 05:53] LABS: VBG Base Excess -4.8 mmol/L; VBG HCO3 20 mmol/L (22-26); VBG pCO2 36 mmHg; VBG pH 7.34 (7.32-7.43); VBG pO2 69 mmHg
[2023-10-31 05:57] LABS: Venous Blood Gas Refer to POC result
[2023-10-31 06:00] LABS: Hematocrit 31.9 % (42.0-52.0); Hemoglobin 10.7 g/dl (14.0-18.0); Mean Corpuscular HGB Conc 33.5 g/dl (31.0-36.0); Mean Corpuscular Hemoglobin 25.5 pg (27.0-33.0); Mean Corpuscular Volume 76.1 fL (80.0-98.0); Mean Platelet Volume 10.3 fL (9.4-12.4); Platelet Count 178 X10*3/uL (160-400); Red Blood Count 4.19 X10*6/uL (4.60-5.80); Red Cell Distribution Width 15.8 % (11.0-16.0); White Blood Count 24.7 X10*3/uL (4.8-10.8)
[2023-10-31 06:13] LABS: ~Lactic Acid-LAB USE ONLY 4.1 mmol/L (0.5-2.0)
[2023-10-31 06:18] LABS: Albumin Level 3.7 g/dL (3.5-5.0); Anion Gap 20 (12-20); Blood Urea Nitrogen 14 mg/dL (9-16); Calcium 8.2 mg/dL (8.4-10.2); Carbon Dioxide 17 mmol/L (22-29); Chloride 106 mmol/L (96-108); Creatinine Clr Calc Pharmacy 91.5; Estimated Glomerular Filt Rate > 60; Glucose Random 120 mg/dL (60-115); Phosphorus 3.4 mg/dL (2.7-4.5); Potassium 4.3 mmol/L (3.3-5.1); Sodium 139 mmol/L (135-145)
[2023-10-31 06:21] LABS: Band Neutrophils Percent 12 % (3-5); Basophils Abs Manual 0.2 X10*3/uL (0.0-0.2); Basophils Percent Manual 1 % (0-2); Eosinophils Absolute Manual 0.2 X10*3/uL (0.0-0.4); Eosinophils Percent Manual 1 % (0-4); Lymphocytes Percent Manual 4 % (20-40); Metamyelocytes Percent 4 %; Monocytes Absolute Manual 2.2 X10*3/uL (0.1-1.2); Monocytes Percent Manual 9 % (2-11); Neutrophils Percent Manual 69 % (45-73)
[2023-10-31 06:22] LABS: Platelet Estimate NORMAL (NORMAL); Platelet Morphology Comment NORMAL; RBC Morphology NORMAL
[2023-10-31 06:23] LABS: Toxic Vacuolation PRESENT
[2023-10-31 06:24] LABS: B Type Natriuretic Peptide 315 pg/mL (<100); Hypochromasia 1+ (5-14) /OIF
[2023-10-31] MEDS: Magnesium Sulfate/H2O 2 GM/50 ML PIGGYBACK IV ×2 (06:37→09:30)
[2023-10-31] MEDS: Calcium Gluconate/NaCl,Iso-Osm 2 GM/100 ML PLAST..BAG IV (07:52)
[2023-10-31] MEDS: levoFLOXacin/D5W 750 MG/150 ML PIGGYBACK 100 MG IV (09:30)
[2023-10-31] MEDS: Buprenorphine/Naloxone 8/2 mg FILM 1 FILM SUBLINGUAL ×2 (10:15→22:05)
[2023-10-31] MEDS: Enoxaparin Sodium 40 MG/0.4 ML SYRINGE SUBCUT (10:15)
[2023-10-31] MEDS: Divalproex Sodium 500 MG TABLET.DR PO ×3 (10:15→22:05)
--- NOTE | 2023-10-31 10:43 | PHA.MEDREC ---
Pharmacy Consult ? Medication Reconciliation Pharmacy has completed the medication reconciliation Patient knew medication and doses of most medications. Patient states he take Suboxone 12mg BID, however PDMP shows 8mg, qty: 30, for 10 days supply, last filled 10/20, suggesting he is on 8mg TID.
[2023-10-31] MEDS: ALPRAZolam 0.5 MG TABLET 1 MG PO ×3 (12:02→22:05)
[2023-10-31 12:59] LABS: Anion Gap 15 (12-20); Blood Urea Nitrogen 11 mg/dL (9-16); Calcium 9.5 mg/dL (8.4-10.2); Carbon Dioxide 23 mmol/L (22-29); Chloride 104 mmol/L (96-108); Creatinine Clr Calc Pharmacy 97.7; Estimated Glomerular Filt Rate > 60; Glucose Random 116 mg/dL (60-115); Sodium 138 mmol/L (135-145)
--- NOTE | 2023-10-31 14:51 | MHC.CM.PN ---
Addendum entered by Ailyn Barnes 10/31/23 14:59: Call placed to [facility]i: pt's Section 12 today and he would have been expected to d/c from facility today. Pt will need to be seen by [facility] Behavioral team for assessment of INPT psych needs once medically stable. Pt's belongings are in locked storage at [facility] and pt can call ahead for picker feeder arrangements. Original Note: Pt remains in ICU for tx of septic shock: no response to fluid bolusing and requiring pressors: Pt somewhat sleepy and states he is from [facility] and was placed at [facility] with acute psychiatric issues: Pt was a section 12 per documentation in chart. Pt states he is hopeful he can return to home and not have to to back to INPT psych. CM to reapproach on 10/31.
--- NOTE | 2023-10-31 19:46 | PC.NURSE ---
patient transferred to [facility] during shift change. RN received report at the desk. Upon arrival patient was yelling, throwing things, argumentative and threatening to break things in the room because he wanted his phone and wanted to leave. Security at bedside, assisted with confrontation, and then took patient's belongings with them as patient is a section 12 and per policy cannot have his items. RN in room to meet patient, patient laying in bed and demanded Tylenol. 1:1 in the room per orders. Patient refusing physical assessment and not willing to answer historical questions. RN to admit patient to unit and review orders. Once able RN will administer Tylenol per patient request. All needs met at this time, call jara within reach.
[2023-10-31] MEDS: buPROPion HCL 75 MG TABLET PO (22:05)
[2023-10-31] MEDS: QUEtiapine Fumarate 200 MG TABLET PO (23:26)
[2023-11-01] VITALS (8 sets, daily range): BP systolic 105–132; BP diastolic 58–81; PULSE 68–96; RESP 17–20; TEMP 36.2–37.1; O2SAT 92–98
[2023-11-01] MEDS: Acetaminophen 325 MG TABLET 650 MG PO ×3 (04:12→21:55)
[2023-11-01] MEDS: ondansetron HCL 4 MG/2 ML VIAL IVPUSH ×2 (05:28→14:09)
[2023-11-01 06:03] LABS: MANUAL DIFF FLAG NO
[2023-11-01 06:06] LABS: Venous Blood Gas Refer to POC result
[2023-11-01 06:09] LABS: VBG Base Excess 2.1 mmol/L; VBG HCO3 25 mmol/L (22-26); VBG pCO2 36 mmHg; VBG pH 7.45 (7.32-7.43); VBG pO2 105 mmHg
[2023-11-01 06:12] LABS: Basophils Absolute Auto 0.1 X10*3/uL (0.0-0.2); Basophils Percent Auto 0.5 % (0-2); Eosinophils Absolute Auto 0.1 X10*3/uL (0.0-0.4); Eosinophils Percent Auto 0.6 % (0-4); Hematocrit 30.7 % (42.0-52.0); Hemoglobin 10.1 g/dl (14.0-18.0); Imm Gran Abs Auto 0.33 X10*3/uL (0.00-0.03); Imm Gran Pct Auto 1.8 % (0.0-0.4); Lymphocytes Absolute Auto 1.1 X10*3/uL (1.2-4.9); Lymphocytes Percent Auto 6.2 % (20-40); Mean Corpuscular HGB Conc 32.9 g/dl (31.0-36.0); Mean Corpuscular Hemoglobin 25.4 pg (27.0-33.0); Mean Corpuscular Volume 77.3 fL (80.0-98.0); Mean Platelet Volume 10.6 fL (9.4-12.4); Monocytes Absolute Auto 1.4 X10*3/uL (0.1-1.2); Monocytes Percent Auto 7.9 % (2-11); Neutrophils Absolute Auto 15.1 x10*3/uL (2.0-8.3); Platelet Count 179 X10*3/uL (160-400); Red Blood Count 3.97 X10*6/uL (4.60-5.80); Red Cell Distribution Width 15.8 % (11.0-16.0); White Blood Count 18.1 X10*3/uL (4.8-10.8)
[2023-11-01 06:32] LABS: Albumin Level 3.5 g/dL (3.5-5.0); Anion Gap 15 (12-20); Blood Urea Nitrogen 10 mg/dL (9-16); Calcium 9.2 mg/dL (8.4-10.2); Carbon Dioxide 22 mmol/L (22-29); Chloride 103 mmol/L (96-108); Creatinine Clr Calc Pharmacy 132.6; Estimated Glomerular Filt Rate > 60; Glucose Random 126 mg/dL (60-115); Magnesium 1.6 mg/dL (1.6-2.6); Phosphorus 1.3 mg/dL (2.7-4.5); Potassium 3.7 mmol/L (3.3-5.1); Sodium 136 mmol/L (135-145)
[2023-11-01] MEDS: levoFLOXacin/D5W 750 MG/150 ML PIGGYBACK 100 MG IV (09:11)
[2023-11-01] MEDS: Enoxaparin Sodium 40 MG/0.4 ML SYRINGE SUBCUT (09:16)
[2023-11-01] MEDS: Buprenorphine/Naloxone 8/2 mg FILM 1 FILM SUBLINGUAL ×2 (09:17→21:54)
[2023-11-01] MEDS: ALPRAZolam 0.5 MG TABLET 1 MG PO ×3 (09:17→21:54)
[2023-11-01] MEDS: buPROPion HCL 75 MG TABLET PO ×2 (09:17→21:54)
[2023-11-01] MEDS: Divalproex Sodium 500 MG TABLET.DR PO ×3 (09:17→21:56)
--- NOTE | 2023-11-01 13:54 | P.PNIM_ITS ---
Subjective Subjective Date of Service: 11/01/23 Interval History: Complaining of generalized body ache, cough, complaining of chills, no acute events overnight, receiving IV antibiotics for pneumonia. Tolerating diet no nausea, no vomiting, no abdominal pain. Review of Systems All other system reviewed and are negative Physical Exam 2 Vital Signs: Vital Signs: Last Vital Signs Temp 97.2 F 11/01/23 11:57 Pulse 77 11/01/23 11:57 Resp 17 11/01/23 11:57 BP 122/80 11/01/23 11:57 Pulse Ox 92 11/01/23 11:57 O2 Del Method Room Air 11/01/23 11:57 O2 Flow Rate 4 11/01/23 07:50 BMI result Body Mass Index 34.5 Const: Other: General awake alert x3, in no acute distress. Anicteric sclera Neck supple no JVD. CVS regular rate rhythm, Respiratory lungs coarse breath sounds, no wheeze, no crackles Gastrointestinal abdomen soft, nontender, bowel sounds audible, no no guarding , no rigidity. Extremities no edema. Neuro non focal Skin no rash Objective Data Active Medications Acetaminophen (Acetaminophen 325 Mg Tablet) 650 mg PO Q6H PRN PRN Reason: Pain, Moderate(Pain Scale 4-6) Last Admin: 11/01/23 04:12 Dose: 650 mg Documented By: CALVIN Albuterol Sulfate (Albuterol Sulfate (0.083%) 2.5 Mg/3 Ml Vial.Neb) 2.5 mg INHALE Q4H PRN PRN Reason: Shortness of Breath/Wheezing Alprazolam (Alprazolam 0.5 Mg Tablet) 1 mg PO TID [facility] Last Admin: 11/01/23 09:17 Dose: 1 mg Documented By: CHEKO Buprenorphine/Naloxone (Buprenorphine/Naloxone 8/2 Mg Film) 1 film SUBLINGUAL BID [facility] Last Admin: 11/01/23 09:17 Dose: 1 film Documented By: CHEKO Bupropion HCl (Bupropion Hcl 75 Mg Tablet) 75 mg PO BID [facility] Last Admin: 11/01/23 09:17 Dose: 75 mg Documented By: CHEKO Divalproex Sodium (Divalproex Sodium 500 Mg Tablet.) 500 mg PO TID [facility] Last Admin: 11/01/23 09:17 Dose: 500 mg Documented By: CHEKO Enoxaparin Sodium (Enoxaparin Sodium 40 Mg/0.4 Ml Syringe) 40 mg SUBCUT Q24H [facility] Last Admin: 11/01/23 09:16 Dose: 40 mg Documented By: CHEKO Levofloxacin (Levaquin) 750 mg in 150 mls @ 100 mls/hr IV Q24H [facility] Last Infusion: 11/01/23 11:55 Dose: Infused Documented By: CHEKO Ondansetron HCl (Ondansetron Hcl 4 Mg/2 Ml Vial) 4 mg IVPUSH Q6H PRN PRN Reason: Nausea Last Admin: 11/01/23 05:28 Dose: 4 mg Documented By: CALVIN Prazosin HCl 5 mg/ Prazosin (HCl 2 mg) 7 mg PO BEDTIME [facility]; Protocol Last Admin: 10/31/23 23:24 Dose: 7 mg Documented By: CALVIN Quetiapine Fumarate (Quetiapine Fumarate 200 Mg Tablet) 200 mg PO BEDTIME HUSSEIN Last Admin: 10/31/23 23:26 Dose: 200 mg Documented By: CALVIN Labs 11/01/23 05:57 11/01/23 05:57 Labs: Laboratory Results - last 24 hr 11/01/23 11/01/23 05:57 06:02 MCV 77.3 L MCH 25.4 L MCHC 32.9 RDW 15.8 Plt Count 179 MPV 10.6 Immature Gran % (Auto) 1.8 H Neut % (Auto) 83.0 H Lymph % (Auto) 6.2 L [place] % (Auto) 7.9 Eos % (Auto) 0.6 Baso % (Auto) 0.5 Lymph # (Auto) 1.1 L [place] # (Auto) 1.4 H Eos # (Auto) 0.1 Baso # (Auto) 0.1 Abs Immat Gran (auto) 0.33 H Absolute Neuts (auto) 15.1 H Absolute Nucleated RBC 0.000 Nucleated RBC % (auto) 0.0 VBG pH 7.45 H VBG pCO2 36 VBG pO2 105 VBG HCO3 25 VBG O2 Saturation 100.0 VBG Base Excess 2.1 Anion Gap 15 Estim Creat Clear Calc 132.6 Estimated GFR > 60 Random Glucose 126 H Calcium 9.2 Phosphorus 1.3 L Magnesium 1.6 Albumin 3.5 Microbiology Microbiology Results: Microbiology 10/30/23 20:12 Blood Culture - Preliminary Blood - Venous No growth after 24 hours. 10/30/23 20:13 Blood Culture - Preliminary Blood - Venous No growth after 24 hours. Assessment and Plan (1) Acute hypoxic respiratory failure: Status: Acute (2) Pneumonia: Status: Acute (3) Septic shock: Status: Acute Plan 38-year-old male with a past medical history of anxiety and prior history of substance abuse on? Suboxone admitted for management of septic shock Septic shock due to multifocal pneumonia right upper and lower lobe community- acquired pneumonia. Admitted to ICU treated with IV fluids and pressors , septic shock resolved, subsequently transferred to medical floor on IV antibiotics for pneumonia. Will continue IV Levaquin day 2 WBC trending down from 24,000 to 18,000 , blood cultures x2 negative Add cough medication/Tylenol for pain Acute hypoxic respiratory failure due to pneumonia Not on home oxygen will wean as tolerated History of substance abuse On Suboxone Acute kidney injury likely prerenal, resolved, status post IV fluids. Acute hypo phosphatemia will replete and follow labs Mood disorder continue home medications Wellbutrin, Seroquel, Xanax and Depakote, psych consult pending Subcu Lovenox Full code In my clinical judgment patient will require continued inpatient hospitalization for treatment with IV antibiotics, treatment can not be provided in less acute setting. Quality Stroke Does the patient have a stroke diagnosis?: No VTE Prior VTE?: No VTE Risk Level:: Medical - moderate - high VTE Device Contraindication: N/A - Device Ordered VTE Drug Contraindication: N/A - Med Ordered
--- NOTE | 2023-11-01 16:12 | P.CNPS_ITS ---
History of Present Illness Date of Service: 11/02/2023 Chief Complaint: septic shock Reason for Consult: SI Requesting physician: Josefina Hugo Discussed with referring provider: Yes Sources of Information: patient interviewed, chart reviewed and crisis/core team assessment reviewed HPI Narrative: Mr. Georges is a 38 year-old male with hx of MDD, opioid use disorder who was transferred from [place] inpatient psych unit where he was receiving treatment for depression and suicidal ideation. He was medically admitted due to septic shock s/s to respiratory failure due to pneumonia. Pt seen in his room. He reports feeling depressed in the context of recently losing his aunt. He adamantly denies any plan or intent to harm himself. He reports he hopes to return to [place]. He states he has all his belonging there. He reports he is originally from [facility]. No signs of psychosis or delusions. [facility] Medical History (Updated 11/02/23 @ 12:54 by Leila Huertas) History of substance abuse Anxiety Diagnostics Vital Signs (24Hr): Vital Signs - 24 hr 10/31/23 20:00 11/01/23 00:00 11/01/23 04:00 Temperature 99.5 F 98.7 F 97.4 F Pulse Rate 83 77 96 Respiratory Rate 18 18 18 Blood Pressure 104/61 105/61 132/73 Pulse Oximetry 97 98 95 Oxygen Delivery Method Nasal Cannula Nasal Cannula Nasal Cannula Oxygen Flow Rate 4 4 4 11/01/23 07:50 11/01/23 11:57 11/01/23 15:39 Temperature 97.6 F 97.2 F 97.6 F Pulse Rate 85 77 92 Respiratory Rate 17 17 18 Blood Pressure 109/60 122/80 125/66 Pulse Oximetry 92 92 97 Oxygen Delivery Method Nasal Cannula Room Air Room Air Oxygen Flow Rate 4 BMI result Body Mass Index 34.5 Labs 11/01/23 05:57 11/01/23 05:57 Labs: Laboratory Results - last 48 hr 10/30/23 10/30/23 10/30/23 19:18 20:12 20:13 WBC 17.0 H RBC 4.83 Hgb 12.3 L Hct 36.2 L MCV 74.9 L MCH 25.5 L MCHC 34.0 RDW 15.3 Plt Count 193 MPV 10.8 Immature Gran % (Auto) 1.0 H Neut % (Auto) 82.0 H Lymph % (Auto) 5.3 L Hall % (Auto) 11.3 H Eos % (Auto) 0.1 Baso % (Auto) 0.3 Lymph # (Auto) 0.9 L Hall # (Auto) 1.9 H Eos # (Auto) 0.0 Baso # (Auto) 0.1 Abs Immat Gran (auto) 0.17 H Absolute Neuts (auto) 14.0 H Absolute Nucleated RBC 0.000 Nucleated RBC % (auto) 0.0 Neutrophils % (Manual) Band Neutrophils % Lymphocytes % (Manual) Monocytes % (Manual) Eosinophils % (Manual) Basophils % (Manual) Metamyelocytes % Abs Neuts (Manual) Lymphocytes # (Manual) Monocytes # (Manual) Eosinophils # (Manual) Basophils # (Manual) Metamyelocytes # Toxic Vacuolation Platelet Estimate Plt Morphology Comment RBC Morphology Hypochromasia Smear Tech's Comments VERIFIED VBG pH VBG pCO2 VBG pO2 VBG HCO3 VBG O2 Saturation VBG Base Excess Sodium 132 L Potassium 5.4 H Chloride 98 Carbon Dioxide 22 Anion Gap 17 BUN 17 H Creatinine 1.32 Estim Creat Clear Calc 87.3 Estimated GFR > 60 Random Glucose 119 H Lactic Acid 3.3 H* Lactic Acid F/U @ 2Hr Lactic Acid F/U @ 4Hr Calcium 9.3 Phosphorus Magnesium Total Bilirubin 0.9 AST 29 ALT 13 Alkaline Phosphatase 55 Troponin I High Sens B-Natriuretic Peptide Total Protein 7.3 Albumin 3.6 Urine Color Urine Appearance Urine pH Ur Specific Beeson Urine Protein Urine Glucose (UA) Urine Ketones Urine Blood Urine Nitrite Ur Leukocyte Esterase Urine RBC Urine WBC Ur Squamous Epith Cells Urine Bacteria Hyaline Casts Urine Opiates Screen Ur Buprenorphine Scrn Ur Oxycodone Screen Urine Methadone Screen Urine Fentanyl Screen Ur Barbiturates Screen Ur Phencyclidine Scrn Ur Amphetamines Screen U Benzodiazepines Scrn Urine Cocaine Screen U Marijuana (THC) Screen Influenza Type A (PCR) NEGATIVE Influenza Type B (PCR) NEGATIVE RSV RNA Qual (PCR) NEGATIVE SARS-CoV-2 RNA (RT-PCR) NEGATIVE 10/30/23 10/30/23 10/31/23 20:31 22:47 01:44 WBC RBC Hgb Hct MCV MCH MCHC RDW Plt Count MPV Immature Gran % (Auto) Neut % (Auto) Lymph % (Auto) Hall % (Auto) Eos % (Auto) Baso % (Auto) Lymph # (Auto) Hall # (Auto) Eos # (Auto) Baso # (Auto) Abs Immat Gran (auto) Absolute Neuts (auto) Absolute Nucleated RBC Nucleated RBC % (auto) Neutrophils % (Manual) Band Neutrophils % Lymphocytes % (Manual) Monocytes % (Manual) Eosinophils % (Manual) Basophils % (Manual) Metamyelocytes % Abs Neuts (Manual) Lymphocytes # (Manual) Monocytes # (Manual) Eosinophils # (Manual) Basophils # (Manual) Metamyelocytes # Toxic Vacuolation Platelet Estimate Plt Morphology Comment RBC Morphology Hypochromasia Smear Tech's Comments VBG pH VBG pCO2 VBG pO2 VBG HCO3 VBG O2 Saturation VBG Base Excess Sodium Potassium Chloride Carbon Dioxide Anion Gap BUN Creatinine Estim Creat Clear Calc Estimated GFR Random Glucose Lactic Acid Lactic Acid F/U @ 2Hr 4.4 H* Lactic Acid F/U @ 4Hr Calcium Phosphorus Magnesium Total Bilirubin AST ALT Alkaline Phosphatase Troponin I High Sens 3.7 B-Natriuretic Peptide Total Protein Albumin Urine Color Dark Yellow Urine Appearance Clear Urine pH 7.0 Ur Specific Beeson 1.020 Urine Protein 30 (1+) H Urine Glucose (UA) Negative Urine Ketones Trace Urine Blood Negative Urine Nitrite Negative Ur Leukocyte Esterase Trace H Urine RBC 0-2 Urine WBC 0-5 Ur Squamous Epith Cells 0-2 Urine Bacteria None Seen Hyaline Casts 0-2 Urine Opiates Screen Not Detected Ur Buprenorphine Scrn Positive H Ur Oxycodone Screen Not Detected Urine Methadone Screen Not Detected Urine Fentanyl Screen Not Detected Ur Barbiturates Screen Not Detected Ur Phencyclidine Scrn Not Detected Ur Amphetamines Screen Not Detected U Benzodiazepines Scrn POSITIVE H Urine Cocaine Screen Not Detected U Marijuana (THC) Screen Not Detected Influenza Type A (PCR) Influenza Type B (PCR) RSV RNA Qual (PCR) SARS-CoV-2 RNA (RT-PCR) 10/31/23 10/31/23 10/31/23 05:44 05:45 12:32 WBC 24.7 H RBC 4.19 L Hgb 10.7 L Hct 31.9 L MCV 76.1 L MCH 25.5 L MCHC 33.5 RDW 15.8 Plt Count 178 MPV 10.3 Immature Gran % (Auto) Cancelled Neut % (Auto) Cancelled Lymph % (Auto) Cancelled Hall % (Auto) Cancelled Eos % (Auto) Cancelled Baso % (Auto) Cancelled Lymph # (Auto) Cancelled Hall # (Auto) Cancelled Eos # (Auto) Cancelled Baso # (Auto) Cancelled Abs Immat Gran (auto) Cancelled Absolute Neuts (auto) Cancelled Absolute Nucleated RBC 0.000 Nucleated RBC % (auto) 0.0 Neutrophils % (Manual) 69 Band Neutrophils % 12 H Lymphocytes % (Manual) 4 L Monocytes % (Manual) 9 Eosinophils % (Manual) 1 Basophils % (Manual) 1 Metamyelocytes % 4 Abs Neuts (Manual) 20.0 H Lymphocytes # (Manual) 1.0 L Monocytes # (Manual) 2.2 H Eosinophils # (Manual) 0.2 Basophils # (Manual) 0.2 Metamyelocytes # 1.0 Toxic Vacuolation PRESENT Platelet Estimate NORMAL Plt Morphology Comment NORMAL RBC Morphology NORMAL Hypochromasia 1+ (5-14) Smear Tech's Comments VBG pH 7.34 VBG pCO2 36 VBG pO2 69 VBG HCO3 20 L VBG O2 Saturation 93.0 VBG Base Excess -4.8 Sodium 139 138 Potassium 4.3 D 4.0 Chloride 106 104 Carbon Dioxide 17 L 23 Anion Gap 20 15 BUN 14 11 Creatinine 1.26 1.18 Estim Creat Clear Calc 91.5 97.7 Estimated GFR > 60 > 60 Random Glucose 120 H 116 H Lactic Acid Lactic Acid F/U @ 2Hr Lactic Acid F/U @ 4Hr 4.1 H* Calcium 8.2 L D 9.5 D Phosphorus 3.4 Magnesium 1.0 L* Total Bilirubin AST ALT Alkaline Phosphatase Troponin I High Sens B-Natriuretic Peptide 315 H Total Protein Albumin 3.7 Urine Color Urine Appearance Urine pH Ur Specific Beeson Urine Protein Urine Glucose (UA) Urine Ketones Urine Blood Urine Nitrite Ur Leukocyte Esterase Urine RBC Urine WBC Ur Squamous Epith Cells Urine Bacteria Hyaline Casts Urine Opiates Screen Ur Buprenorphine Scrn Ur Oxycodone Screen Urine Methadone Screen Urine Fentanyl Screen Ur Barbiturates Screen Ur Phencyclidine Scrn Ur Amphetamines Screen U Benzodiazepines Scrn Urine Cocaine Screen U Marijuana (THC) Screen Influenza Type A (PCR) Influenza Type B (PCR) RSV RNA Qual (PCR) SARS-CoV-2 RNA (RT-PCR) 11/01/23 11/01/23 05:57 06:02 WBC 18.1 H RBC 3.97 L Hgb 10.1 L Hct 30.7 L MCV 77.3 L MCH 25.4 L MCHC 32.9 RDW 15.8 Plt Count 179 MPV 10.6 Immature Gran % (Auto) 1.8 H Neut % (Auto) 83.0 H Lymph % (Auto) 6.2 L Hall % (Auto) 7.9 Eos % (Auto) 0.6 Baso % (Auto) 0.5 Lymph # (Auto) 1.1 L Hall # (Auto) 1.4 H Eos # (Auto) 0.1 Baso # (Auto) 0.1 Abs Immat Gran (auto) 0.33 H Absolute Neuts (auto) 15.1 H Absolute Nucleated RBC 0.000 Nucleated RBC % (auto) 0.0 Neutrophils % (Manual) Band Neutrophils % Lymphocytes % (Manual) Monocytes % (Manual) Eosinophils % (Manual) Basophils % (Manual) Metamyelocytes % Abs Neuts (Manual) Lymphocytes # (Manual) Monocytes # (Manual) Eosinophils # (Manual) Basophils # (Manual) Metamyelocytes # Toxic Vacuolation Platelet Estimate Plt Morphology Comment RBC Morphology Hypochromasia Smear Tech's Comments VBG pH 7.45 H VBG pCO2 36 VBG pO2 105 VBG HCO3 25 VBG O2 Saturation 100.0 VBG Base Excess 2.1 Sodium 136 Potassium 3.7 Chloride 103 Carbon Dioxide 22 Anion Gap 15 BUN 10 Creatinine 0.87 Estim Creat Clear Calc 132.6 Estimated GFR > 60 Random Glucose 126 H Lactic Acid Lactic Acid F/U @ 2Hr Lactic Acid F/U @ 4Hr Calcium 9.2 Phosphorus 1.3 L Magnesium 1.6 Total Bilirubin AST ALT Alkaline Phosphatase Troponin I High Sens B-Natriuretic Peptide Total Protein Albumin 3.5 Urine Color Urine Appearance Urine pH Ur Specific Beeson Urine Protein Urine Glucose (UA) Urine Ketones Urine Blood Urine Nitrite Ur Leukocyte Esterase Urine RBC Urine WBC Ur Squamous Epith Cells Urine Bacteria Hyaline Casts Urine Opiates Screen Ur Buprenorphine Scrn Ur Oxycodone Screen Urine Methadone Screen Urine Fentanyl Screen Ur Barbiturates Screen Ur Phencyclidine Scrn Ur Amphetamines Screen U Benzodiazepines Scrn Urine Cocaine Screen U Marijuana (THC) Screen Influenza Type A (PCR) Influenza Type B (PCR) RSV RNA Qual (PCR) SARS-CoV-2 RNA (RT-PCR) Imaging Radiology Impressions: ITS Impressions Chest X-Ray 10/30/23 20:20 IMPRESSION: Right upper lobe pneumonia. Abdomen/Pelvis CT 10/31/23 01:05 IMPRESSION: 1. No central or proximal segmental pulmonary embolus identified. Limited evaluation of the more distal vasculature due to bolus timing and respiratory motion artifact. 2. Dense consolidation in the right upper lobe, suspicious for pneumonia. Additional patchy consolidation in the right lower lobe. Radiographic follow-up is recommended after treatment/resolution of symptoms. 3. Mildly prominent mediastinal lymph nodes, which may be reactive. 4. Questionable slight mural prominence of the gallbladder, of uncertain clinical significance. If there is clinical concern for cholecystitis, this would be better assessed with ultrasound. 5. Mural prominence of the descending and sigmoid colon which could be due to underdistention, though the possibility of a mild colitis cannot be excluded. VTE: negative. Chest CTA 10/31/23 01:05 IMPRESSION: 1. No central or proximal segmental pulmonary embolus identified. Limited evaluation of the more distal vasculature due to bolus timing and respiratory motion artifact. 2. Dense consolidation in the right upper lobe, suspicious for pneumonia. Additional patchy consolidation in the right lower lobe. Radiographic follow-up is recommended after treatment/resolution of symptoms. 3. Mildly prominent mediastinal lymph nodes, which may be reactive. 4. Questionable slight mural prominence of the gallbladder, of uncertain clinical significance. If there is clinical concern for cholecystitis, this would be better assessed with ultrasound. 5. Mural prominence of the descending and sigmoid colon which could be due to underdistention, though the possibility of a mild colitis cannot be excluded. VTE: negative. Mental Status Exam Mental Status Exam Narrative: Appearance: wearing hospital gown, fair hygiene, in NAD Behavior: somewhat guarded and irritable. Psychomotor: no agitation or retardation noted Speech: clear, normal rate/rhythm/volume, spontaneous TP: linear TC: wanting tx for both mental health and medical Mood: depressed Affect: somewhat irritable SI: denies plan or intent HI: none VH/AH: none Delusions: no overt delusional content noted or reported Insight/judgment: fair x 2. memory/cog: alert, oriented x 3. grossly intact to conversational testing. Medications Medications Current Medications Acetaminophen (Acetaminophen 325 Mg Tablet) 650 mg PO Q6H PRN PRN Reason: Pain, Moderate(Pain Scale 4-6) Last Admin: 11/01/23 14:09 Dose: 650 mg Albuterol Sulfate (Albuterol Sulfate (0.083%) 2.5 Mg/3 Ml Vial.Neb) 2.5 mg INHALE Q4H PRN PRN Reason: Shortness of Breath/Wheezing Alprazolam (Alprazolam 0.5 Mg Tablet) 1 mg PO TID [facility] Last Admin: 11/01/23 14:09 Dose: 1 mg Buprenorphine/Naloxone (Buprenorphine/Naloxone 8/2 Mg Film) 1 film SUBLINGUAL BID [facility] Last Admin: 11/01/23 09:17 Dose: 1 film Bupropion HCl (Bupropion Hcl 75 Mg Tablet) 75 mg PO BID [facility] Last Admin: 11/01/23 09:17 Dose: 75 mg Divalproex Sodium (Divalproex Sodium 500 Mg Tablet.Dr) 500 mg PO TID [facility] Last Admin: 11/01/23 14:09 Dose: 500 mg Enoxaparin Sodium (Enoxaparin Sodium 40 Mg/0.4 Ml Syringe) 40 mg SUBCUT Q24H [facility] Last Admin: 11/01/23 09:16 Dose: 40 mg Levofloxacin (Levaquin) 750 mg in 150 mls @ 100 mls/hr IV Q24H [facility] Last Infusion: 11/01/23 11:55 Dose: Infused Ondansetron HCl (Ondansetron Hcl 4 Mg/2 Ml Vial) 4 mg IVPUSH Q6H PRN PRN Reason: Nausea Last Admin: 11/01/23 14:09 Dose: 4 mg Prazosin HCl 5 mg/ Prazosin (HCl 2 mg) 7 mg PO BEDTIME [facility]; Protocol Last Admin: 10/31/23 23:24 Dose: 7 mg Quetiapine Fumarate (Quetiapine Fumarate 200 Mg Tablet) 200 mg PO BEDTIME [facility] Last Admin: 10/31/23 23:26 Dose: 200 mg Allergies Allergies Allergy/AdvReac Type Severity Reaction Status Date / Time lactase [From Dairy Aid] AdvReac Unknown Verified 10/30/23 18:49 Assessment & Plan Assessment & Plan (1) MDD (major depressive disorder), recurrent episode, moderate: Status: Acute Code(s): F33.1 - Major depressive disorder, recurrent, moderate (2) Opioid use disorder, moderate, dependence: Status: Acute Code(s): F11.20 - Opioid dependence, uncomplicated Plan Mr. Georges is a 38 year-old male with hx of MDD, substance use who was admitted psychiatrically at [facility] for depression and SI. He was transferred from [place] due to respiratory failure s/s to pneumonia. He denies SI/HI. No plan or intent to harm himself but pt reports he would like to continue tx for depression once medically clear. We discussed risks, benefits and alternative treatment options. continue current medications. PLAN 1. Once medically clear, pt can be assessed by care team for disposition. I would recommend voluntary admission to psych unit as no imminent safety concerns in terms of harm to self or others, nor he presents as gravely disable due to psychiatric symptoms. However, can explore less restrictive setting that include dual dx treatment to address both substance use and mental health 2. please give narcan prior to d/c. 3. regarding his current rx for xanax- note that [facility] shows pt has had more than 30 providers prescribed controlled substances in last year with over 100 rx's- be cautious as to giving rx on discharge rather than encouraging pt to follow up with OP provider to either continue or brad off. Total time managing care of this patient today ____ minutes.
[2023-11-01] MEDS: Sodium,Potassium Phosphates POWD.PACK 1 PACKET PO (16:15)
[2023-11-01] MEDS: QUEtiapine Fumarate 200 MG TABLET PO (21:55)
[2023-11-02] MEDS: Sennosides 8.6 MG TABLET 17.2 MG PO (03:13)
[2023-11-02 03:40] VITALS: BP 112/63; PULSE 72; RESP 20; TEMP 36.1; O2SAT 94
[2023-11-02 07:33] VITALS: BP 122/60; PULSE 69; RESP 14; TEMP 36.7; O2SAT 94
[2023-11-02] MEDS: Enoxaparin Sodium 40 MG/0.4 ML SYRINGE SUBCUT (09:16)
[2023-11-02] MEDS: levoFLOXacin/D5W 750 MG/150 ML PIGGYBACK 100 MG IV (09:16)
[2023-11-02] MEDS: buPROPion HCL 75 MG TABLET PO ×2 (09:17→21:30)
[2023-11-02] MEDS: Divalproex Sodium 500 MG TABLET.DR PO ×3 (09:17→21:30)
[2023-11-02] MEDS: ALPRAZolam 0.5 MG TABLET 1 MG PO ×3 (09:17→21:31)
[2023-11-02] MEDS: Buprenorphine/Naloxone 8/2 mg FILM 1 FILM SUBLINGUAL ×2 (09:17→21:31)
[2023-11-02] MEDS: Acetaminophen 325 MG TABLET 650 MG PO ×2 (09:24→21:30)
[2023-11-02 11:35] VITALS: BP 142/85; PULSE 93; RESP 15; TEMP 37.7; O2SAT 95
[2023-11-02] MEDS: polyethylene glycoL 3350 17 GM POWD.PACK PO (12:11)
[2023-11-02] MEDS: Docusate Sodium 100 MG CAPSULE 200 MG PO (12:11)
--- NOTE | 2023-11-02 14:27 | P.PNIM_ITS ---
Subjective Subjective Date of Service: 11/02/23 Interval History: Complaining of chest discomfort with coughing, generalized body ache and constipation, denies fever, no chills, no other acute issues overnight, patient denies suicidal ideation. Review of Systems All other system reviewed and negative Physical Exam 2 Vital Signs: Vital Signs: Last Vital Signs Temp 99.9 F 11/02/23 11:35 Pulse 93 11/02/23 11:35 Resp 15 11/02/23 11:35 BP 142/85 H 11/02/23 11:35 Pulse Ox 95 11/02/23 11:35 O2 Del Method Room Air 11/02/23 11:35 O2 Flow Rate 2 11/01/23 23:49 BMI result Body Mass Index 34.5 Const: Other: General awake alert x3, in no acute distress. Anicteric sclera Neck supple no JVD. CVS regular rate rhythm, Respiratory lungs coarse breath sounds, no wheeze, no crackles Gastrointestinal abdomen soft, non tender, bowel sounds audible, no guarding , no rigidity. Extremities no edema. Neuro non focal Skin no rash Objective Data Active Medications Acetaminophen (Acetaminophen 325 Mg Tablet) 650 mg PO Q6H PRN PRN Reason: Pain, Moderate(Pain Scale 4-6) Last Admin: 11/02/23 09:24 Dose: 650 mg Documented By: CHEKO Albuterol Sulfate (Albuterol Sulfate (0.083%) 2.5 Mg/3 Ml Vial.[facility]) 2.5 mg INHALE Q4H PRN PRN Reason: Shortness of Breath/Wheezing Alprazolam (Alprazolam 0.5 Mg Tablet) 1 mg PO TID [facility] Last Admin: 11/02/23 09:17 Dose: 1 mg Documented By: CHEKO Buprenorphine/Naloxone (Buprenorphine/Naloxone 8/2 Mg Film) 1 film SUBLINGUAL BID [facility] Last Admin: 11/02/23 09:17 Dose: 1 film Documented By: CHEKO Bupropion HCl (Bupropion Hcl 75 Mg Tablet) 75 mg PO BID [facility] Last Admin: 11/02/23 09:17 Dose: 75 mg Documented By: CHEKO Divalproex Sodium (Divalproex Sodium 500 Mg Tablet.) 500 mg PO TID [facility] Last Admin: 11/02/23 09:17 Dose: 500 mg Documented By: CHEKO Docusate Sodium (Docusate Sodium 100 Mg Capsule) 200 mg PO DAILY [facility] Last Admin: 11/02/23 12:11 Dose: 200 mg Documented By: CHEKO Enoxaparin Sodium (Enoxaparin Sodium 40 Mg/0.4 Ml Syringe) 40 mg SUBCUT Q24H [facility] Last Admin: 11/02/23 09:16 Dose: 40 mg Documented By: CHEKO Guaifenesin/Dextromethorphan (Guaifenesin Dm 200/20/10 Ml 10 Ml Syrup) 10 ml PO TID [facility] Levofloxacin (Levaquin) 750 mg in 150 mls @ 100 mls/hr IV Q24H [facility] Last Infusion: 11/02/23 12:09 Dose: Infused Documented By: CHEKO Ondansetron HCl (Ondansetron Hcl 4 Mg/2 Ml Vial) 4 mg IVPUSH Q6H PRN PRN Reason: Nausea Last Admin: 11/01/23 14:09 Dose: 4 mg Documented By: CHEKO Polyethylene Glycol (Polyethylene Glycol 3350 17 Gm Powd.Pack) 17 gm PO DAILY [facility] Last Admin: 11/02/23 12:11 Dose: 17 gm Documented By: CHEKO Prazosin HCl 5 mg/ Prazosin (HCl 2 mg) 7 mg PO BEDTIME [facility]; Protocol Last Admin: 11/01/23 21:55 Dose: 7 mg Documented By: CALVIN Quetiapine Fumarate (Quetiapine Fumarate 200 Mg Tablet) 200 mg PO BEDTIME [facility] Last Admin: 11/01/23 21:55 Dose: 200 mg Documented By: CALVIN Labs 11/01/23 05:57 11/01/23 05:57 Microbiology Microbiology Results: Microbiology 10/30/23 20:12 Blood Culture - Preliminary Blood - Venous No growth after 48 hours. 10/30/23 20:13 Blood Culture - Preliminary Blood - Venous No growth after 48 hours. Assessment and Plan (1) Acute hypoxic respiratory failure: Status: Acute (2) Pneumonia: Status: Acute (3) Septic shock: Status: Acute Plan 38-year-old male with a past medical history of anxiety and prior history of substance abuse on? Suboxone admitted for management of septic shock, patient was previously residing at [facility] unit and was receiving treatment for depression and suicidal ideation. Septic shock due to multifocal pneumonia right upper and lower lobe community- acquired pneumonia. Admitted to ICU treated with IV fluids and pressors , septic shock resolved, subsequently transferred to medical floor on IV antibiotics for pneumonia. Will continue IV Levaquin day 3 WBC trending down from 24,000 to 18,000 , blood cultures x2 negative Continue cough medication/Tylenol for pain/out of bed to chair and incentive spirometry Follow labs Will recommend follow-up chest x-ray in 3-4 months for clearance of infection Acute hypoxic respiratory failure due to pneumonia Not on home oxygen will wean as tolerated History of substance abuse On Suboxone Acute kidney injury likely prerenal, resolved, status post IV fluids. Acute hypo phosphatemia will replete and follow labs Mood disorder continue home medications Wellbutrin, Seroquel, Xanax and Depakote, patient seen by Psychiatry, they recommend to consult care team for disposition once medically cleared. Subcu Lovenox Full code In my clinical judgment patient will require continued inpatient hospitalization for treatment with IV antibiotics, treatment can not be provided in less acute setting. Quality Stroke Does the patient have a stroke diagnosis?: No VTE Prior VTE?: No VTE Risk Level:: Medical - moderate - high VTE Device Contraindication: N/A - Device Ordered VTE Drug Contraindication: N/A - Med Ordered
--- NOTE | 2023-11-02 15:13 | MHC.CM.PN ---
EMR reviewed and per MD rounds, pt is not medically cleared for discharge today due to awaiting labs and psychiatry consult. Per psych once pt is medically cleared they recommend a Care Team evaluation to assess for inpatient psych need. Per hospitalist anticipating pt will be medically cleared for discharge tomorrow.
[2023-11-02 16:00] VITALS: BP 121/69; PULSE 82; RESP 16; TEMP 36.6; O2SAT 93
[2023-11-02] MEDS: guaiFENesin DM 200/20/10 ML 10 ML SYRUP PO ×2 (16:00→21:31)
[2023-11-02 19:52] VITALS: BP 132/85; PULSE 71; RESP 16; TEMP 36.8; O2SAT 95
[2023-11-02] MEDS: QUEtiapine Fumarate 200 MG TABLET PO (21:30)
[2023-11-02 23:32] VITALS: BP 127/80; PULSE 78; RESP 16; TEMP 36.3; O2SAT 93
[2023-11-03 04:00] VITALS: BP 98/56; PULSE 74; RESP 17; TEMP 36.2; O2SAT 95
[2023-11-03 07:28] LABS: Hematocrit 33.7 % (42.0-52.0); Hemoglobin 11.3 g/dl (14.0-18.0); Mean Corpuscular HGB Conc 33.5 g/dl (31.0-36.0); Mean Corpuscular Hemoglobin 25.5 pg (27.0-33.0); Mean Corpuscular Volume 76.1 fL (80.0-98.0); Mean Platelet Volume 10.4 fL (9.4-12.4); Platelet Count 264 X10*3/uL (160-400); Red Blood Count 4.43 X10*6/uL (4.60-5.80); Red Cell Distribution Width 15.8 % (11.0-16.0); White Blood Count 5.3 X10*3/uL (4.8-10.8)
[2023-11-03] MEDS: guaiFENesin DM 200/20/10 ML 10 ML SYRUP PO ×2 (07:59→14:21)
[2023-11-03] MEDS: Docusate Sodium 100 MG CAPSULE 200 MG PO (07:59)
[2023-11-03] MEDS: Buprenorphine/Naloxone 8/2 mg FILM 1 FILM SUBLINGUAL (07:59)
[2023-11-03] MEDS: Divalproex Sodium 500 MG TABLET.DR PO ×2 (07:59→14:21)
[2023-11-03 08:00] VITALS: BP 128/66; PULSE 76; RESP 16; TEMP 36.3; O2SAT 94
[2023-11-03] MEDS: levoFLOXacin/D5W 750 MG/150 ML PIGGYBACK 100 MG IV (08:00)
[2023-11-03] MEDS: polyethylene glycoL 3350 17 GM POWD.PACK PO (08:00)
[2023-11-03] MEDS: Enoxaparin Sodium 40 MG/0.4 ML SYRINGE SUBCUT (08:00)
[2023-11-03] MEDS: ALPRAZolam 0.5 MG TABLET 1 MG PO ×2 (08:00→14:21)
[2023-11-03] MEDS: buPROPion HCL 75 MG TABLET PO (08:00)
[2023-11-03 11:52] VITALS: BP 133/86; PULSE 72; RESP 16; TEMP 36.2; O2SAT 93
[2023-11-03] MEDS: Acetaminophen 325 MG TABLET 650 MG PO (14:21)
[2023-11-03 16:00] VITALS: BP 134/76; PULSE 68; RESP 18; TEMP 36.3; O2SAT 96
--- NOTE | 2023-11-03 17:13 | P.DS_ITS ---
DS: Providers Provider Date of Service: 11/03/23 Date of admission: 10/31/23 00:47 Primary care physician: None Physician Consults: 10/31/23 01:11 Consult to Psychiatry Routine Consulting Provider: Psych Covering Reason for consultation: SI at previous facility 11/01/23 17:56 Consult to Psychiatry Routine Consulting Provider: Psych Covering Reason for consultation: on section 12 for suicidal ideation from domi guajardo Has provider been notified: No 11/03/23 07:40 Consult to Care Team Routine Comment: Reason for consultation: medically cleared DS: Diagnosis Discharge Diagnosis (1) Acute hypoxic respiratory failure: Status: Acute (2) Pneumonia: Status: Acute (3) Septic shock: Status: Acute DS: Summary Hospital Course Hospital Course: History of presenting illness: Date of Service: 10/31/23 Attending physician on admission: Vidya Najera Chief Complaint: URI 38-year-old male with a past medical history of anxiety and prior history of substance abuse on? Suboxone who presented to the emergency department with complaints of upper respiratory symptoms.? Patient from a facility, reported couple of days of? body aches, chills, night sweats and coughing.?? In the emergency department patient?s? initial vital signs stable,? hypoxic to 91% on room air, placed on 2 L via nasal cannula, but later patient dropped blood pressure to systolic of 70s? received 4 L? bolus of normal saline and blood pressure continued to be low, required initiation of pressors Laboratory data was significant for WBC 17,? serum sodium 132, potassium 5.4, lactic 3.3.? Urine toxicology positive for Suboxone and benzos,? patient does report taking Xanax for anxiety.?? Imaging:? ?Chest x-ray concerning for right upper lobe pneumonia ED course:? ?Received 4 L bolus, ceftriaxone 1 g, azithromycin 500, and started on Levophed.?? Patient will be admitted to ICU for management of septic shock Hospital course: 38-year-old male with a past medical history of anxiety and prior history of substance abuse on? Suboxone ,residing at [place] inpatient psych unit and was receiving treatment for depression and suicidal ideation presented to [facility] emergency room with upper respiratory symptoms of body aches chills night sweats and cough, in emergency room patient was noted to be hypotensive with systolic blood pressure in 70s, chest x-ray showed right lower lobe pneumonia patient treated in the emergency room with IV fluids IV antibiotics but due to persistent hypotension patient was admitted to intensive care unit with a diagnosis of septic shock due to right lower lobe pneumonia and acute hypoxic respiratory failure, in ICU patient treated with IV fluids and pressors septic shock resolved and patient subsequently transferred to intermediate care unit on IV Levaquin, patient's symptoms gradually improved his blood culture showed no growth, WBC normalized, patient currently oxygenating 93% on room air therefore he is being discharged to for continued management of underlying depression, he is recommended repeat a chest x-ray in 3-4 months for clearance of infection he will be discharged on 2 more days of by mouth Levaquin and recommended to take Tylenol for pain. Patient on admission was also noted to be in acute renal failure likely prerenal that resolved with IV fluid and was likely related to sepsis.. History of substance abuse recommend to continue Suboxone Acute hypo phosphatemia recommend to repeat phosphorus level at a.m. Mood disorder continue home medications Wellbutrin, Seroquel, Xanax and Depakote. Time Attestation Discharge Coordination Time (in mins): 36 Quality: Safe Use of Opioids Does Pt have an Active Cancer Diagnosis on the Problem List?: No Quality: Stroke Does the patient have a stroke diagnosis?: No Physical Exam Vital Signs: Vital Signs: Last Vital Signs Temp 97.4 F 11/03/23 16:00 Pulse 68 11/03/23 16:00 Resp 18 11/03/23 16:00 BP 134/76 11/03/23 16:00 Pulse Ox 96 11/03/23 16:00 O2 Del Method Room Air 11/03/23 16:00 O2 Flow Rate 2 11/01/23 23:49 BMI result Body Mass Index 34.5 Const: Other: General awake alert x3, in no acute distress. Anicteric sclera Neck supple no JVD. CVS regular rate rhythm, Respiratory lungs rt sided coarse breath sounds, no wheeze, no crackles Gastrointestinal abdomen soft, non tender, bowel sounds audible, no guarding , no rigidity. Extremities no edema. Neuro non focal Skin no rash DS: Data Data Completed and Pending Labs on day of discharge: Laboratory Results - last 24 hr 11/03/23 07:07 WBC 5.3 RBC 4.43 L Hgb 11.3 L Hct 33.7 L MCV 76.1 L MCH 25.5 L MCHC 33.5 RDW 15.8 Plt Count 264 D MPV 10.4 Absolute Nucleated RBC 0.000 Nucleated RBC % (auto) 0.0 Preliminary micro results at discharge 10/30/23 20:12 Blood Culture - Preliminary Blood - Venous No growth after 48 hours. 10/30/23 20:13 Blood Culture - Preliminary Blood - Venous No growth after 48 hours. Discharge Plan Discharge Patient Disposition: Xfer Psychiatric Hosp Discharge Diagnosis: Septic shock due to pneumonia Acute kidney injury Referrals: Physician,None [Primary Care Provider] - 1 Week Discharge Medications: New levofloxacin 750 mg Tablet 750 mg PO Q24H Qty: 2 0RF Continued atorvastatin 80 mg tablet 80 mg PO DAILY clonidine HCl 0.1 mg tablet 0.1 mg PO TID diphenhydramine HCl [Banophen] 50 mg capsule 50 mg PO BEDTIME PRN (Reason: Rash) prazosin 1 mg capsule 7 mg PO BEDTIME quetiapine 200 mg tablet 200 mg PO BEDTIME divalproex 500 mg tablet,delayed release (DR/EC) 500 mg PO TID alprazolam 0.5 mg tablet 1 mg PO TID bupropion HCl 75 mg tablet 75 mg PO BID montelukast 10 mg tablet 10 mg PO DAILY mirtazapine 15 mg tablet 15 mg PO BEDTIME albuterol sulfate [Ventolin HFA] 90 mcg/actuation HFA aerosol inhaler 2 puff inhalation Q4-6H PRN (Reason: sob) buprenorphine-naloxone [Suboxone] 8-2 mg film 1 film sublingual TID Patient Comments: Patient states he take 12mg BID, however PDMP shows 8mg, qty: 30, for 10 days supply, last filled 10/20, suggesting he is on 8mg TID multivitamin Tablet 1 tab PO DAILY docusate sodium 50 mg Capsule 50 mg PO BID Discharge Orders: Discharge Order (Routine); Ordered 11/03/23 Ordered By: Josefina Hugo Diet: Advance to usual diet Activity on Discharge: As tolerated Stand Alone Forms: Patient Portal Discharge page Print Language: Bolivian Care Plan Goals: Septic shock due to multifocal pneumonia resolved take antibiotic as prescribed Repeat chest x-ray in 3 to 4 weeks for clearance of infection. Check phosphorus level at a.m. Health Concerns: Continue Suboxone Mood disorder Plan of Treatment: Follow-up with primary care physician call for appointment Assessment: As above
--- NOTE | 2023-11-03 17:34 | PC.NURSE ---
pt tx to [facility] psych. Report given to Racquel HERNANDEZ
== END 2023-11-03 17:29 | DRG 720 ==
LOC: HO.ED 20:26 → HO.EDOVER 10-31 01:08 → HO.ICU 10-31 01:16 → HO.IMC 10-31 18:35
PROVIDERS: Hospitalist; Internal Medicine Critical Care Medicine; Internal Medicine Pulmonary Disease; Physician Assistant; Admitting Provider Registered Nurse Community Health; Emergency Provider Emergency Medicine Emergency Medical Services; Visit Provider Hospitalist
DX: A41.9 Sepsis, unspecified organism (principal); R65.21 Severe sepsis with septic shock; N17.9 Acute kidney failure, unspecified; J18.9 Pneumonia, unspecified organism; E83.39 Other disorders of phosphorus metabolism; F32.9 Major depressive disorder, single episode, unspecified; Z20.822 Contact with and (suspected) exposure to COVID-19; F11.20 Opioid dependence, uncomplicated; Z79.899 Other long term (current) drug therapy
CPT/HCPCS: 0241U; 36415; 71045; 71275; 74178; 80048; 80053; 80307; 81001; 82040; 82803; 83605; 83735; 83880; 84100; 84484; 85007; 85025; 85027; 87040; 87899; 93005; 99285; J0456; J0613; J0696; J1650; J1956; J2060; J2405; J2543; J3370; J3475; P9047; Q9967; S9485

== ENCOUNTER → 2023-10-30 18:46 | Outpatient (BNV) | payer OTHER, SELFPAY | PROVIDERS: Admitting Provider Registered Nurse Community Health; Emergency Provider Emergency Medicine Emergency Medical Services; Visit Provider Internal Medicine Cardiovascular Disease | DX: R00.0 Tachycardia, unspecified (principal) | CPT/HCPCS: 93010 ==

== ENCOUNTER → 2023-10-31 00:47 | Outpatient (BNV) | payer OTHER, SELFPAY | PROVIDERS: Admitting Provider Registered Nurse Community Health; Emergency Provider Emergency Medicine Emergency Medical Services; Visit Provider Social Worker | DX: F33.1 Major depressive disorder, recurrent, moderate (principal); F11.20 Opioid dependence, uncomplicated | CPT/HCPCS: 99232 ==

== ENCOUNTER → 2023-10-31 00:47 | Outpatient (BNV) | payer OTHER, SELFPAY | PROVIDERS: Admitting Provider Registered Nurse Community Health; Emergency Provider Emergency Medicine Emergency Medical Services; Visit Provider Registered Nurse Community Health | DX: A41.9 Sepsis, unspecified organism (principal); R65.21 Severe sepsis with septic shock; J96.01 Acute respiratory failure with hypoxia; N17.9 Acute kidney failure, unspecified; J18.9 Pneumonia, unspecified organism; F41.9 Anxiety disorder, unspecified | CPT/HCPCS: 99291; 99292 ==

== ENCOUNTER → 2023-10-31 00:47 | Outpatient (BNV) | payer OTHER, SELFPAY | PROVIDERS: Admitting Provider Registered Nurse Community Health; Emergency Provider Emergency Medicine Emergency Medical Services; Visit Provider Hospitalist | DX: J96.01 Acute respiratory failure with hypoxia (principal); J18.9 Pneumonia, unspecified organism; A41.9 Sepsis, unspecified organism; R65.21 Severe sepsis with septic shock | CPT/HCPCS: 99232; 99233; 99239 ==

== ENCOUNTER 2023-11-03 17:33 | Inpatient (IN) | payer OTHER, SELFPAY ==
[2023-11-03 17:45] VITALS: BP 153/98; PULSE 79; TEMP 37; O2SAT 96
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
[2023-11-03 19:28] VITALS: BMI 37.4
[2023-11-03 20:40] VITALS: BP 148/95; PULSE 73; RESP 16; TEMP 36.1; O2SAT 96
[2023-11-03] MEDS: Buprenorphine/Naloxone 8/2 mg FILM 1 FILM SUBLINGUAL (20:48)
[2023-11-03] MEDS: guaiFENesin DM 200/20/10 ML 10 ML SYRUP PO (20:48)
[2023-11-03] MEDS: cloNIDine HCL 0.1 MG TABLET PO (20:50)
[2023-11-03] MEDS: buPROPion HCL 75 MG TABLET PO (20:50)
[2023-11-03] MEDS: QUEtiapine Fumarate 200 MG TABLET PO (20:51)
[2023-11-03] MEDS: ALPRAZolam 0.5 MG TABLET 1 MG PO (20:51)
[2023-11-03] MEDS: Prazosin HCL 1 MG CAPSULE 2 MG PO (20:52)
[2023-11-03] MEDS: Divalproex Sodium 500 MG TABLET.DR PO (20:52)
[2023-11-03] MEDS: Prazosin HCL 5 MG CAPSULE PO (20:52)
[2023-11-03] MEDS: Acetaminophen 325 MG TABLET 650 MG PO (21:18)
[2023-11-04] MEDS: Acetaminophen 325 MG TABLET 650 MG PO (05:20)
[2023-11-04 07:36] LABS: Alanine Aminotransferase 37 U/L (0-40); Albumin Level 3.8 g/dL (3.5-5.0); Alkaline Phosphatase 83 U/L (39-117); Anion Gap 17 (12-20); Aspartate Amino Transferase 31 U/L (5-37); Bilirubin Total 0.3 mg/dL (0.0-1.0); Blood Urea Nitrogen 11 mg/dL (9-16); Calcium 9.7 mg/dL (8.4-10.2); Carbon Dioxide 25 mmol/L (22-29); Chloride 102 mmol/L (96-108); Cholesterol 217 mg/dL (<200); Creatinine Clr Calc Pharmacy 120.9; Estimated Glomerular Filt Rate > 60; Glucose Fasting 100 mg/dL (60-99); HDL Cholesterol 17 mg/dL (>40); Potassium 3.8 mmol/L (3.3-5.1); Sodium 140 mmol/L (135-145); Total Protein 7.7 g/dL (6.5-8.0); Triglycerides 436 mg/dL (<150)
[2023-11-04 07:42] VITALS: BP 131/73; PULSE 84; RESP 20; TEMP 36.5; O2SAT 94
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
[2023-11-04] MEDS: polyethylene glycoL 3350 17 GM POWD.PACK PO (09:32)
[2023-11-04 09:34] VITALS: BP 131/73
[2023-11-04] MEDS: guaiFENesin DM 200/20/10 ML 10 ML SYRUP PO ×3 (09:34→22:15)
[2023-11-04] MEDS: Docusate Sodium 100 MG/10 ML LIQUID 50 MG PO ×2 (09:34→22:14)
[2023-11-04] MEDS: buPROPion HCL 75 MG TABLET PO ×2 (09:34→22:14)
[2023-11-04] MEDS: Divalproex Sodium 500 MG TABLET.DR PO ×3 (09:34→22:13)
[2023-11-04] MEDS: ALPRAZolam 0.5 MG TABLET 1 MG PO ×3 (09:34→22:14)
[2023-11-04] MEDS: cloNIDine HCL 0.1 MG TABLET PO ×3 (09:34→22:19)
[2023-11-04] MEDS: Buprenorphine/Naloxone 8/2 mg FILM 1 FILM SUBLINGUAL ×2 (09:35→22:13)
[2023-11-04] MEDS: Milk of Magnesia 30 ML ORAL.SUSP PO (11:43)
--- NOTE | 2023-11-04 13:00 | MHC.CLN ---
NUTRITION CONSULT FOR REPORTED WEIGHT LOSS OF 10# WHILE IN HOSPITAL. HOSPITAL ADM FOR PNEUMONIA AND SEPTIC SHOCK. RECEIVED IV ABT AND IV FLUIDS DURING ADM. PO INTAKE OF MEALS RECORDED 100%. LARGE WEIGHT VARIANCE FROM UNIT TO UNIT. SUSPECT SOME WEIGHT LOSS LIKELY DUE TO INFECTION, BUT SIGNIFICANT WEIGHT LOSS NOT LIKELY WITH PO 100%. NO ADDITIONAL NUTRITION INTERVENTIONS AT THIS TIME.
--- NOTE | 2023-11-04 18:12 | PC.NURSE ---
RN called [facility] [phone] and spoke with Eun to ask about pt's belongings. Eun stated his belongings are behind the nurse's station and she was under the impression someone was going to pick them up. RN explained that there was a miscommunication because we do not have staff that can order picker/assembler pt's belongings and we were under the impression his belongings would be dropped off to us. Eun stated she will follow up with tire building supervisor and call us back with an update.
[2023-11-04 22:05] VITALS: BP 128/72; PULSE 86; RESP 16; TEMP 36.8; O2SAT 92
[2023-11-04] MEDS: QUEtiapine Fumarate 200 MG TABLET PO (22:13)
[2023-11-04] MEDS: diphenhydrAMINE HCL 25 MG CAPSULE 50 MG PO (22:14)
[2023-11-04] MEDS: Prazosin HCL 5 MG CAPSULE PO (22:18)
[2023-11-04] MEDS: Prazosin HCL 1 MG CAPSULE 2 MG PO (22:18)
[2023-11-05 08:40] VITALS: BP 113/66; PULSE 64; RESP 16; TEMP 36.8; O2SAT 92
[2023-11-05] MEDS: ALPRAZolam 0.5 MG TABLET 1 MG PO ×3 (08:42→21:35)
[2023-11-05 08:43] VITALS: BP 113/66
[2023-11-05] MEDS: cloNIDine HCL 0.1 MG TABLET PO ×3 (08:43→21:35)
[2023-11-05] MEDS: buPROPion HCL 75 MG TABLET PO ×2 (08:43→21:35)
[2023-11-05] MEDS: Divalproex Sodium 500 MG TABLET.DR PO ×3 (08:43→21:36)
[2023-11-05] MEDS: Docusate Sodium 100 MG/10 ML LIQUID 50 MG PO ×2 (08:44→21:34)
[2023-11-05] MEDS: Buprenorphine/Naloxone 8/2 mg FILM 1 FILM SUBLINGUAL ×2 (08:44→21:36)
[2023-11-05] MEDS: guaiFENesin DM 200/20/10 ML 10 ML SYRUP PO ×3 (08:47→21:35)
[2023-11-05] MEDS: polyethylene glycoL 3350 17 GM POWD.PACK PO (10:31)
[2023-11-05] MEDS: Acetaminophen 325 MG TABLET 650 MG PO ×2 (10:31→21:41)
--- NOTE | 2023-11-05 10:49 | HO.PSYCHPN ---
Subjective Subjective Date of Service: 11/05/23 Reason For Visit: crisis Subjective Notes: 3 Day Interim History: Reviewed with Dr. Jones. Pt reports feeling good today; pt stated, I'm just feeling frustrated because I want my belongings from [facility] and they said they would bring it here. I'm just waiting to leave . Pt denies SI/HI/VH/AH. Medication Compliance: Yes Side effects from medications: No Attending Groups: No Review of Systems Constitutional: Reports as per HPI Eyes: Reports as per HPI Reports as per HPI Cardiovascular: Reports as per HPI Respiratory: Reports as per HPI Gastrointestinal: Reports as per HPI Genitourinary: Reports as per HPI Musculoskeletal: Reports as per HPI Skin/Breast: Reports as per HPI Reports as per HPI Psychiatric: Reports as per HPI Endocrine: Reports as per HPI Hematologic/Lymphatic: Reports as per HPI Allergic/Immunologic: Reports as per HPI Mental Status Exam Mental Status Exam Narrative: Pt is alert and oriented; behavior is cooperative and calm; dressed in casual attire; mood is described as good ; eye contact appropriate; Speech is normal rate, volume and prosody and not pressured; thought process is organized and goal directed; Thought content is on tx; otherwise pertinent to relevant topics and without any delusional content, paranoid ideations or grandiosity; denies SI/HI/VH/AH. Diagnostics Vital Signs (24Hr): Vital Signs - 24 hr 11/04/23 22:05 11/05/23 08:40 11/05/23 08:43 Temperature 98.3 F 98.3 F Pulse Rate 86 64 Respiratory Rate 16 16 Blood Pressure 128/72 113/66 113/66 Pulse Oximetry 92 92 Oxygen Delivery Method Room Air Room Air BMI result Body Mass Index 37.4 Labs 11/04/23 07:08 Labs: Laboratory Results - last 48 hr 11/04/23 07:08 Sodium 140 Potassium 3.8 Chloride 102 Carbon Dioxide 25 Anion Gap 17 BUN 11 Creatinine 0.81 Estim Creat Clear Calc 120.9 Estimated GFR > 60 Fasting Glucose 100 H Calcium 9.7 Total Bilirubin 0.3 AST 31 ALT 37 Alkaline Phosphatase 83 Total Protein 7.7 Albumin 3.8 Triglycerides 436 H Cholesterol 217 H LDL Cholesterol, Calc TNP HDL Cholesterol 17 L Medications Medications Current Medications Acetaminophen (Acetaminophen 325 Mg Tablet) 650 mg PO Q6H PRN PRN Reason: Headache/Pain Mild Scale (1-3) Last Admin: 11/05/23 10:31 Dose: 650 mg Al Hydroxide/Mg Hydroxide (Magnesium Hydrox/Alum Hydrox 30 Ml Oral.Susp) 30 ml PO Q6H PRN PRN Reason: Heartburn/Nausea Albuterol Sulfate (Albuterol Sulfate 90 Mcg 8 Gm Inhaler) 2 puff INHALE Q4H PRN PRN Reason: sob Alprazolam (Alprazolam 0.5 Mg Tablet) 1 mg PO TID [facility] Last Admin: 11/05/23 08:42 Dose: 1 mg Buprenorphine/Naloxone (Buprenorphine/Naloxone 8/2 Mg Film) 1 film SUBLINGUAL BID [facility] Last Admin: 11/05/23 08:44 Dose: 1 film Bupropion HCl (Bupropion Hcl 75 Mg Tablet) 75 mg PO BID [facility] Last Admin: 11/05/23 08:43 Dose: 75 mg Clonidine HCl (Clonidine Hcl 0.1 Mg Tablet) 0.1 mg PO TID [facility]; Protocol Last Admin: 11/05/23 08:43 Dose: 0.1 mg Diphenhydramine HCl (Diphenhydramine Hcl 25 Mg Capsule) 50 mg PO BEDTIME PRN PRN Reason: Rash Last Admin: 11/04/23 22:14 Dose: 50 mg Divalproex Sodium (Divalproex Sodium 500 Mg Tablet.Dr) 500 mg PO TID [facility] Last Admin: 11/05/23 08:43 Dose: 500 mg Docusate Sodium (Docusate Sodium 100 Mg/10 Ml Liquid) 50 mg PO BID [facility] Last Admin: 11/05/23 08:44 Dose: 50 mg Guaifenesin/Dextromethorphan (Guaifenesin Dm 200/20/10 Ml 10 Ml Syrup) 10 ml PO TID [facility] Last Admin: 11/05/23 08:47 Dose: 10 ml Hydroxyzine HCl (Hydroxyzine Hcl 25 Mg Tablet) 25 mg PO Q6H PRN PRN Reason: Anxiety Magnesium Hydroxide (Milk Of Magnesia 30 Ml Oral.Susp) 30 ml PO DAILY PRN PRN Reason: Constipation Last Admin: 11/04/23 11:43 Dose: 30 ml Polyethylene Glycol (Polyethylene Glycol 3350 17 Gm Powd.Pack) 17 gm PO DAILY [facility] Last Admin: 11/05/23 10:31 Dose: 17 gm Prazosin HCl (Prazosin Hcl 5 Mg Capsule) 5 mg PO BEDTIME [facility]; Protocol Last Admin: 11/04/23 22:18 Dose: 5 mg Prazosin HCl (Prazosin Hcl 1 Mg Capsule) 2 mg PO BEDTIME [facility] Last Admin: 11/04/23 22:18 Dose: 2 mg Quetiapine Fumarate (Quetiapine Fumarate 200 Mg Tablet) 200 mg PO BEDTIME [facility] Last Admin: 11/04/23 22:13 Dose: 200 mg Trazodone HCl (Trazodone Hcl 50 Mg Tablet) 50 mg PO BEDTIME MRX1 PRN PRN Reason: Insomnia Allergies Allergies Allergy/AdvReac Type Severity Reaction Status Date / Time lactase [From Dairy Aid] AdvReac Unknown Verified 10/30/23 18:49 Assessment & Plan Assessment & Plan (1) MDD (major depressive disorder), recurrent episode, moderate: Status: Acute Code(s): F33.1 - Major depressive disorder, recurrent, moderate (2) PTSD (post-traumatic stress disorder): Status: Acute Code(s): F43.10 - Post-traumatic stress disorder, unspecified (3) Alcohol use disorder: Status: Acute Code(s): F10.90 - Alcohol use, unspecified, uncomplicated (4) Opioid use disorder: Status: Acute Code(s): F11.90 - Opioid use, unspecified, uncomplicated Plan Patient is a 38 year old male with hx of MDD, PTSD, alcohol use d/o and opioid use d/o, who presented to [facility] via ambulance from [facility] and was admitted to the ICU for Septic shock d.t multifocal pneumonia. Pt was medically cleared and admitted to M3 d/t suicidal ideation secondary to increased depression. Plan: CV/3 day notice 15 minute safety checks continue home medications referral to outpatient therapist discharge planning 11/04: continue current tx plan. Patient educated on: diagnosis, medication risk/benefits and therapeutic strategies Informed Consent: understands Reason for continued inpatient stay Substantial Risk for: med/psych decompensation Time Spent With Patient Time: Total time managing care of this patient today _20___ minutes.
[2023-11-05] MEDS: Ibuprofen 600 MG TABLET PO (13:28)
--- NOTE | 2023-11-05 14:14 | P.CONHOSP_ITS ---
History of Present Illness Data of Consult Service Date: 11/05/23 Requesting physician: Ashley Davis Primary Care Provider: Unknown Physician HPI Reason for consult: dental pain 38 year old male history of anxiety, substance use admitted to psychiatry with consult placed to hospitalist service for evaluation of dental pain/broken tooth. He reports he has all of his upper teeth removed except upper left molar which is now broken. He states for the last 4 days has had significant pain in the tooth and gum line. NO facial pain or swelling. Has been afebrile. No known history of dental abscess. Does have dentist in place outpt. Review of Systems 2 Review of Systems: Yes all other systems are reviewed and are negative [facility] Medical History History of substance abuse Anxiety Social History Household Members: None Housing: Apartment Do you presently have visiting nurse or other home services: No Comment: sitter Patient Tobacco Use Status: Never used Tobacco Use of substances other than those prescribed or required for medical reasons: No Substance Use Type: Former Substance User Currently Displaying Signs/Symptoms of Drug Intoxication Withdrawal: No Have you been hit, kicked, punched, or otherwise hurt by someone within the past year? If so, by whom?: No Do you feel safe in your current relationship?: No Current Relationship Is there a partner from a previous relationship who is making you feel unsafe now?: No Are you made to feel afraid or neglected: No Advance Directives: No Advance Directives Information Provided: No Do you have thoughts of harming others: None Do you have a plan to hurt others: No Plan Recently lost weight without trying: Yes How much weight loss: 2-13 pounds Eating poorly because of decreased appetite: Yes Nutrition screen score: 4 Nutrition Risks: No Nutritional Risk Poor oral hygiene: No service: No Sexual orientation: Straight/Heterosexual Meds Allergies Allergy/AdvReac Type Severity Reaction Status Date / Time lactase [From Dairy Aid] AdvReac Unknown Verified 10/30/23 18:49 Active Medications: Current Medications Acetaminophen (Acetaminophen 325 Mg Tablet) 650 mg PO Q6H PRN PRN Reason: Headache/Pain Mild Scale (1-3) Last Admin: 05/11/24 10:31 Dose: 650 mg Al Hydroxide/Mg Hydroxide (Magnesium Hydrox/Alum Hydrox 30 Ml Oral.Susp) 30 ml PO Q6H PRN PRN Reason: Heartburn/Nausea Albuterol Sulfate (Albuterol Sulfate 90 Mcg 8 Gm Inhaler) 2 puff INHALE Q4H PRN PRN Reason: sob Alprazolam (Alprazolam 0.5 Mg Tablet) 1 mg PO TID [facility] Last Admin: 11/05/23 08:42 Dose: 1 mg Benzocaine (Benzocaine 20 % Oral Gel 9 Gm Tube) 1 appl MUCOUS MEM QID PRN; Protocol PRN Reason: tooth pain Buprenorphine/Naloxone (Buprenorphine/Naloxone 8/2 Mg Film) 1 film SUBLINGUAL BID [facility] Last Admin: 11/05/23 08:44 Dose: 1 film Bupropion HCl (Bupropion Hcl 75 Mg Tablet) 75 mg PO BID [facility] [place] Last Admin: 11/05/23 08:43 Dose: 75 mg Clonidine HCl (Clonidine Hcl 0.1 Mg Tablet) 0.1 mg PO TID [facility]; Protocol Last Admin: 11/05/23 08:43 Dose: 0.1 mg Diphenhydramine HCl (Diphenhydramine Hcl 25 Mg Capsule) 50 mg PO BEDTIME PRN PRN Reason: Rash Last Admin: 11/04/23 22:14 Dose: 50 mg Divalproex Sodium (Divalproex Sodium 500 Mg Tablet.Dr) 500 mg PO TID [facility] [place] Last Admin: 11/05/23 08:43 Dose: 500 mg Docusate Sodium (Docusate Sodium 100 Mg/10 Ml Liquid) 50 mg PO BID [facility] [place] Last Admin: 11/05/23 08:44 Dose: 50 mg Guaifenesin/Dextromethorphan (Guaifenesin Dm 200/20/10 Ml 10 Ml Syrup) 10 ml PO TID [facility] Last Admin: 11/05/23 08:47 Dose: 10 ml Hydroxyzine HCl (Hydroxyzine Hcl 25 Mg Tablet) 25 mg PO Q6H PRN PRN Reason: Anxiety Magnesium Hydroxide (Milk Of Magnesia 30 Ml Oral.Susp) 30 ml PO DAILY PRN PRN Reason: Constipation Last Admin: 11/04/23 11:43 Dose: 30 ml Polyethylene Glycol (Polyethylene Glycol 3350 17 Gm Powd.Pack) 17 gm PO DAILY [facility] Last Admin: 11/05/23 10:31 Dose: 17 gm Prazosin HCl (Prazosin Hcl 5 Mg Capsule) 5 mg PO BEDTIME [facility]; Protocol Last Admin: 11/04/23 22:18 Dose: 5 mg Prazosin HCl (Prazosin Hcl 1 Mg Capsule) 2 mg PO BEDTIME [facility] Last Admin: 11/04/23 22:18 Dose: 2 mg Quetiapine Fumarate (Quetiapine Fumarate 200 Mg Tablet) 200 mg PO BEDTIME [facility] Last Admin: 11/04/23 22:13 Dose: 200 mg Trazodone HCl (Trazodone Hcl 50 Mg Tablet) 50 mg PO BEDTIME MRX1 PRN PRN Reason: Insomnia Home Medications ?Medication ?Instructions ?Recorded ?Confirmed ?Last Taken ?Type albuterol sulfate 90 mcg/actuation 2 puff inhalation Q4-6H PRN sob 10/31/23 11/03/23 10/28/23 History aerosol inhaler (Ventolin HFA) alprazolam 0.5 mg tablet 1 mg PO TID 10/31/23 11/03/23 11/03/23 14:21 History atorvastatin 80 mg tablet 80 mg PO DAILY 10/31/23 10/31/23 10/28/23 History buprenorphine 8 mg-naloxone 2 mg 1 film sublingual BID 10/31/23 11/03/23 11/03/23 07:59 History sublingual film (Suboxone) bupropion HCl 75 mg tablet 75 mg PO BID 10/31/23 11/03/23 11/03/23 08:00 History clonidine HCl 0.1 mg tablet 0.1 mg PO TID 10/31/23 10/31/23 Unknown History diphenhydramine HCl 50 mg capsule 50 mg PO BEDTIME PRN Rash 10/31/23 10/31/23 10/28/23 History (Banophen) divalproex 500 mg tablet,delayed 500 mg PO TID 10/31/23 10/31/23 10/28/23 History release docusate sodium 50 mg capsule 50 mg PO DAILY 10/31/23 11/03/23 11/03/23 07:59 History mirtazapine 15 mg tablet 15 mg PO BEDTIME 10/31/23 10/31/23 10/28/23 History montelukast 10 mg tablet 10 mg PO DAILY 10/31/23 10/31/23 10/28/23 History multivitamin 1 tab PO DAILY 10/31/23 10/31/23 10/28/23 History prazosin 1 mg capsule 7 mg PO BEDTIME 10/31/23 11/03/23 11/02/23 21:31 History quetiapine 200 mg tablet 200 mg PO BEDTIME 10/31/23 11/03/23 11/02/23 21:30 History Depakote 500 mg PO TID 11/03/23 11/03/23 11/03/23 14:21 History polyethylene glycol 3350 17 gram 17 g PO DAILY 11/03/23 11/03/23 11/03/23 08:00 History oral powder packet (Miralax) Physical Exam 2 Vital Signs and Narrative: Vital Signs: Last Vital Signs Temp 98.3 F 11/05/23 08:40 Pulse 64 11/05/23 08:40 Resp 16 11/05/23 08:40 BP 113/66 11/05/23 08:43 Pulse Ox 92 11/05/23 08:40 O2 Del Method Room Air 11/05/23 08:40 BMI result Body Mass Index 37.4 Constitutional - Awake and Alert, No apparent distress Eyes - PERRL Mouth - upper teeth removed with exception of broken left upper molar (#16) without visible abscess but with significant ttp Skin - Warm/Dry. No facial swelling/edema Neurological - Alert & oriented x3 Results Labs 11/04/23 07:08 Assessment and Plan (1) Pain, dental: Status: Acute Plan 38 year old male history of anxiety, substance use admitted to psychiatry with consult placed to hospitalist service for evaluation of dental pain/broken tooth. \ #Broken left upper molar with concern for possible early abscess -pt afebrile without facial swelling/fevers -initiate augmentin 875mg BID x 10 doses. Advised to take with food and eat yogurt daily to prevent diarrhea -Pt will require urgent dental extraction upon discharge. Has outpt dentist in place -tylenol/ibuprofen for pain, heat or ice packs left face Thank you for allowing me to participate in this consult. Signing off at this time. Please do not hesitate to call for further questions or for any acute medical issues
[2023-11-05] MEDS: Amoxicillin/Potassium Clav 875 MG TABLET PO (14:56)
[2023-11-05 15:03] VITALS: BP 107/55; PULSE 75; RESP 16; TEMP 36; O2SAT 96
[2023-11-05 15:05] VITALS: BP 107/55
[2023-11-05 21:30] VITALS: BP 114/68; PULSE 62; RESP 16; TEMP 36.7; O2SAT 97
[2023-11-05] MEDS: diphenhydrAMINE HCL 25 MG CAPSULE 50 MG PO (21:36)
[2023-11-05] MEDS: Prazosin HCL 5 MG CAPSULE PO (21:36)
[2023-11-05] MEDS: QUEtiapine Fumarate 200 MG TABLET PO (21:36)
[2023-11-05] MEDS: Prazosin HCL 1 MG CAPSULE 2 MG PO (21:36)
[2023-11-05] MEDS: Albuterol Sulfate 90 MCG 8 GM INHALER 2 PUFF INHALE (22:25)
[2023-11-06] MEDS: Ibuprofen 400 MG TABLET PO (00:18)
[2023-11-06] MEDS: QUEtiapine Fumarate 50 MG TABLET PO ×3 (00:33→21:58)
[2023-11-06] MEDS: LORazepam 1 MG TABLET PO (00:33)
--- NOTE | 2023-11-06 08:35 | HO.PSYCHPN ---
Subjective Subjective Date of Service: 11/06/23 Reason For Visit: crisis Subjective Notes: 3 Day Interim History: Reviewed with Dr. Jones. Pt reports feeling good today; pt stated, Thank God I woke up this morning. Some people don't get that chance. I just really need a therapist to talk to . Pt denies SI/HI/VH/AH. Medication Compliance: Yes Side effects from medications: No Attending Groups: No Review of Systems Constitutional: Reports as per HPI Eyes: Reports as per HPI Reports as per HPI Cardiovascular: Reports as per HPI Respiratory: Reports as per HPI Gastrointestinal: Reports as per HPI Genitourinary: Reports as per HPI Musculoskeletal: Reports as per HPI Skin/Breast: Reports as per HPI Reports as per HPI Psychiatric: Reports as per HPI Endocrine: Reports as per HPI Hematologic/Lymphatic: Reports as per HPI Allergic/Immunologic: Reports as per HPI Mental Status Exam Mental Status Exam Narrative: Pt is alert and oriented; behavior is cooperative and calm; dressed in casual attire; mood is described as good ; eye contact appropriate; Speech is normal rate, volume and prosody and not pressured; thought process is organized and goal directed; Thought content is on tx; otherwise pertinent to relevant topics and without any delusional content, paranoid ideations or grandiosity; denies SI/HI/VH/AH. Diagnostics Vital Signs (24Hr): Vital Signs - 24 hr 11/05/23 08:40 11/05/23 08:43 11/05/23 15:03 Temperature 98.3 F 96.8 F Pulse Rate 64 75 Respiratory Rate 16 16 Blood Pressure 113/66 113/66 107/55 L Pulse Oximetry 92 96 Oxygen Delivery Method Room Air Room Air 11/05/23 15:05 11/05/23 21:30 Temperature 98.1 F Pulse Rate 62 Respiratory Rate 16 Blood Pressure 107/55 L 114/68 Pulse Oximetry 97 Oxygen Delivery Method Room Air BMI result Body Mass Index 37.4 Labs 11/04/23 07:08 Medications Medications Current Medications Acetaminophen (Acetaminophen 325 Mg Tablet) 650 mg PO Q6H PRN PRN Reason: Headache/Pain Mild Scale (1-3) Last Admin: 11/05/23 21:41 Dose: 650 mg Al Hydroxide/Mg Hydroxide (Magnesium Hydrox/Alum Hydrox 30 Ml Oral.Susp) 30 ml PO Q6H PRN PRN Reason: Heartburn/Nausea Albuterol Sulfate (Albuterol Sulfate 90 Mcg 8 Gm Inhaler) 2 puff INHALE Q4H PRN PRN Reason: sob Last Admin: 11/05/23 22:25 Dose: 2 puff Alprazolam (Alprazolam 0.5 Mg Tablet) 1 mg PO TID [facility] Last Admin: 11/05/23 21:35 Dose: 1 mg Amoxicillin/Clavulanate Potassium (Amoxicillin/Potassium Clav 875 Mg Tablet) 875 mg PO Q12H [facility] Stop: 11/10/23 09:01 Benzocaine (Benzocaine 20 % Oral Gel 9 Gm Tube) 1 appl MUCOUS MEM QID PRN; Protocol PRN Reason: tooth pain Buprenorphine/Naloxone (Buprenorphine/Naloxone 8/2 Mg Film) 1 film SUBLINGUAL BID [facility] Last Admin: 11/05/23 21:36 Dose: 1 film Bupropion HCl (Bupropion Hcl 75 Mg Tablet) 75 mg PO BID [facility] Last Admin: 11/05/23 21:35 Dose: 75 mg Clonidine HCl (Clonidine Hcl 0.1 Mg Tablet) 0.1 mg PO TID [facility]; Protocol Last Admin: 11/05/23 21:35 Dose: 0.1 mg Diphenhydramine HCl (Diphenhydramine Hcl 25 Mg Capsule) 50 mg PO BEDTIME PRN PRN Reason: Rash Last Admin: 11/05/23 21:36 Dose: 50 mg Divalproex Sodium (Divalproex Sodium 500 Mg Tablet.Dr) 500 mg PO TID [facility] Last Admin: 11/05/23 21:36 Dose: 500 mg Docusate Sodium (Docusate Sodium 100 Mg/10 Ml Liquid) 50 mg PO BID [facility] Last Admin: 11/05/23 21:34 Dose: 50 mg Guaifenesin/Dextromethorphan (Guaifenesin Dm 200/20/10 Ml 10 Ml Syrup) 10 ml PO TID [facility] Last Admin: 11/05/23 21:35 Dose: 10 ml Hydroxyzine HCl (Hydroxyzine Hcl 25 Mg Tablet) 25 mg PO Q6H PRN PRN Reason: Anxiety Ibuprofen (Ibuprofen 400 Mg Tablet) 400 mg PO Q6H PRN PRN Reason: Pain, Moderate(Pain Scale 4-6) Last Admin: 11/06/23 00:18 Dose: 400 mg Magnesium Hydroxide (Milk Of Magnesia 30 Ml Oral.Susp) 30 ml PO DAILY PRN PRN Reason: Constipation Last Admin: 11/04/23 11:43 Dose: 30 ml Polyethylene Glycol (Polyethylene Glycol 3350 17 Gm Powd.Pack) 17 gm PO DAILY [facility] Last Admin: 11/05/23 10:31 Dose: 17 gm Prazosin HCl (Prazosin Hcl 5 Mg Capsule) 5 mg PO BEDTIME [facility]; Protocol Last Admin: 11/05/23 21:36 Dose: 5 mg Prazosin HCl (Prazosin Hcl 1 Mg Capsule) 2 mg PO BEDTIME [facility] Last Admin: 11/05/23 21:36 Dose: 2 mg Quetiapine Fumarate (Quetiapine Fumarate 200 Mg Tablet) 200 mg PO BEDTIME [facility] Last Admin: 11/05/23 21:36 Dose: 200 mg Quetiapine Fumarate (Quetiapine Fumarate 50 Mg Tablet) 50 mg PO Q4H PRN PRN Reason: agitation Trazodone HCl (Trazodone Hcl 50 Mg Tablet) 50 mg PO BEDTIME MRX1 PRN PRN Reason: Insomnia Allergies Allergies Allergy/AdvReac Type Severity Reaction Status Date / Time lactase [From Dairy Aid] AdvReac Unknown Verified 10/30/23 18:49 Assessment & Plan Assessment & Plan (1) MDD (major depressive disorder), recurrent episode, moderate: Status: Acute Code(s): F33.1 - Major depressive disorder, recurrent, moderate (2) PTSD (post-traumatic stress disorder): Status: Acute Code(s): F43.10 - Post-traumatic stress disorder, unspecified (3) Alcohol use disorder: Status: Acute Code(s): F10.90 - Alcohol use, unspecified, uncomplicated (4) Opioid use disorder: Status: Acute Code(s): F11.90 - Opioid use, unspecified, uncomplicated Plan Patient is a 38 year old male with hx of MDD, PTSD, alcohol use d/o and opioid use d/o, who presented to [facility] [place] ambulance from [facility] and was admitted to the ICU for Septic shock d.t multifocal pneumonia. Pt was medically cleared and admitted to M3 d/t suicidal ideation secondary to increased depression. Plan: day notice 15 minute safety checks continue home medications referral to outpatient therapist discharge planning 11/04: continue current tx plan. 11/05: Pt reports feeling good today; pt stated, Thank God I woke up this morning. Some people don't get that chance. I just really need a therapist to talk to . Pt denies SI/HI/VH/AH. continue tx plan. Patient educated on: diagnosis, medication risk/benefits, substance abuse and therapeutic strategies Informed Consent: understands Reason for continued inpatient stay Substantial Risk for: med/psych decompensation Time Spent With Patient Time: Total time managing care of this patient today _20___ minutes.
[2023-11-06 08:45] VITALS: BP 126/74; PULSE 92; RESP 14; TEMP 36.8; O2SAT 95
[2023-11-06] MEDS: Docusate Sodium 100 MG/10 ML LIQUID 50 MG PO ×2 (08:56→21:55)
[2023-11-06] MEDS: Divalproex Sodium 500 MG TABLET.DR PO ×3 (08:57→21:58)
[2023-11-06] MEDS: guaiFENesin DM 200/20/10 ML 10 ML SYRUP PO ×3 (08:57→21:55)
[2023-11-06] MEDS: ALPRAZolam 0.5 MG TABLET 1 MG PO ×3 (08:57→21:56)
[2023-11-06 08:58] VITALS: BP 126/74
[2023-11-06] MEDS: Amoxicillin/Potassium Clav 875 MG TABLET PO ×2 (08:58→21:57)
[2023-11-06] MEDS: cloNIDine HCL 0.1 MG TABLET PO ×3 (08:58→21:57)
[2023-11-06] MEDS: buPROPion HCL 75 MG TABLET PO ×2 (08:58→17:16)
[2023-11-06] MEDS: polyethylene glycoL 3350 17 GM POWD.PACK PO (08:59)
[2023-11-06] MEDS: Buprenorphine/Naloxone 8/2 mg FILM 1 FILM SUBLINGUAL ×2 (08:59→18:22)
[2023-11-06] MEDS: Ibuprofen 600 MG TABLET PO ×2 (09:56→21:58)
[2023-11-06 15:20] VITALS: BP 111/63; PULSE 72; RESP 16; TEMP 36.6; O2SAT 97
[2023-11-06 15:21] VITALS: BP 111/63
[2023-11-06] MEDS: Loperamide HCl 2 MG CAPSULE PO (18:20)
[2023-11-06 21:55] VITALS: BP 112/66; PULSE 87; RESP 16; TEMP 36.5; O2SAT 97
[2023-11-06] MEDS: Prazosin HCL 1 MG CAPSULE 2 MG PO (21:57)
[2023-11-06] MEDS: Prazosin HCL 5 MG CAPSULE PO (21:57)
[2023-11-06] MEDS: QUEtiapine Fumarate 200 MG TABLET PO (21:58)
--- NOTE | 2023-11-06 22:10 | PC.NURSE ---
Joselito requetsed an extra dose of seroquel PO prn at [facility] because he was feeling slightly agitated/restless. Patient also given Motrin PO prn for tooth pain 5/10.
[2023-11-07] VITALS (8 sets, daily range): BP systolic 103–127; BP diastolic 62–69; PULSE 66–79; RESP 16; TEMP 36.1–37; O2SAT 96
[2023-11-07] MEDS: polyethylene glycoL 3350 17 GM POWD.PACK PO (08:45)
[2023-11-07] MEDS: Docusate Sodium 100 MG/10 ML LIQUID 50 MG PO ×2 (08:46→20:59)
[2023-11-07] MEDS: ALPRAZolam 0.5 MG TABLET 1 MG PO ×3 (08:46→21:39)
[2023-11-07] MEDS: Amoxicillin/Potassium Clav 875 MG TABLET PO ×2 (08:46→21:00)
[2023-11-07] MEDS: guaiFENesin DM 200/20/10 ML 10 ML SYRUP PO ×3 (08:47→20:58)
[2023-11-07] MEDS: cloNIDine HCL 0.1 MG TABLET PO ×3 (08:48→21:39)
[2023-11-07] MEDS: Buprenorphine/Naloxone 8/2 mg FILM 1 FILM SUBLINGUAL ×2 (08:50→17:10)
[2023-11-07] MEDS: buPROPion HCL 75 MG TABLET PO ×2 (09:06→17:12)
--- NOTE | 2023-11-07 09:19 | HO.PSYCHPN ---
Subjective Subjective Date of Service: 11/07/23 Reason For Visit: crisis Subjective Notes: 3 Day Interim History: Reviewed with Dr. Jones. Keeping to self. Pt reports feeling good today; pt stated, I'm feeling better and ready to go. I have my appointments set up and my medications waiting for me at the pharmacy. I'm just waiting to see a therapist . Pt denies SI/HI/VH/AH. Pt to be discharged tomorrow on 3 day notice. Medication Compliance: Yes Side effects from medications: No Attending Groups: No Review of Systems Constitutional: Reports as per HPI Eyes: Reports as per HPI Reports as per HPI Cardiovascular: Reports as per HPI Respiratory: Reports as per HPI Gastrointestinal: Reports as per HPI Genitourinary: Reports as per HPI Musculoskeletal: Reports as per HPI Skin/Breast: Reports as per HPI Reports as per HPI Psychiatric: Reports as per HPI Endocrine: Reports as per HPI Hematologic/Lymphatic: Reports as per HPI Allergic/Immunologic: Reports as per HPI Mental Status Exam Mental Status Exam Narrative: Pt is alert and oriented; behavior is cooperative and calm; dressed in casual attire; mood is described as good ; eye contact appropriate; Speech is normal rate, volume and prosody and not pressured; thought process is organized and goal directed; Thought content is on tx; otherwise pertinent to relevant topics and without any delusional content, paranoid ideations or grandiosity; denies SI/HI/VH/AH. Diagnostics Vital Signs (24Hr): Vital Signs - 24 hr 11/06/23 15:20 11/06/23 15:21 11/06/23 21:55 Temperature 97.9 F 97.7 F Pulse Rate 72 87 Respiratory Rate 16 16 Blood Pressure 111/63 111/63 112/66 Pulse Oximetry 97 97 Oxygen Delivery Method Room Air Room Air 11/07/23 08:48 Temperature Pulse Rate Respiratory Rate Blood Pressure 103/62 Pulse Oximetry Oxygen Delivery Method BMI result Body Mass Index 37.4 Labs 11/04/23 07:08 Medications Medications Current Medications Acetaminophen (Acetaminophen 325 Mg Tablet) 650 mg PO Q6H PRN PRN Reason: Headache/Pain Mild Scale (1-3) Last Admin: 11/05/23 21:41 Dose: 650 mg Al Hydroxide/Mg Hydroxide (Magnesium Hydrox/Alum Hydrox 30 Ml Oral.Susp) 30 ml PO Q6H PRN PRN Reason: Heartburn/Nausea Albuterol Sulfate (Albuterol Sulfate 90 Mcg 8 Gm Inhaler) 2 puff INHALE Q4H PRN PRN Reason: sob Last Admin: 11/05/23 22:25 Dose: 2 puff Alprazolam (Alprazolam 0.5 Mg Tablet) 1 mg PO TID [facility] Last Admin: 11/07/23 08:46 Dose: 1 mg Amoxicillin/Clavulanate Potassium (Amoxicillin/Potassium Clav 875 Mg Tablet) 875 mg PO Q12H [facility] Stop: 11/10/23 09:01 Last Admin: 11/07/23 08:46 Dose: 875 mg Benzocaine (Benzocaine 20 % Oral Gel 9 Gm Tube) 1 appl MUCOUS MEM QID PRN; Protocol PRN Reason: tooth pain Buprenorphine/Naloxone (Buprenorphine/Naloxone 8/2 Mg Film) 1 film SUBLINGUAL BID@0900,1700 [facility] Last Admin: 11/07/23 08:50 Dose: 1 film Bupropion HCl (Bupropion Hcl 75 Mg Tablet) 75 mg PO DAILY@0800,1700 [facility] Last Admin: 11/07/23 09:06 Dose: 75 mg Clonidine HCl (Clonidine Hcl 0.1 Mg Tablet) 0.1 mg PO TID [facility]; Protocol Last Admin: 11/07/23 08:48 Dose: 0.1 mg Diphenhydramine HCl (Diphenhydramine Hcl 25 Mg Capsule) 50 mg PO BEDTIME PRN PRN Reason: Rash Last Admin: 11/05/23 21:36 Dose: 50 mg Divalproex Sodium (Divalproex Sodium 500 Mg Tablet.) 1,500 mg PO BEDTIME [facility] Last Admin: 11/06/23 22:01 Dose: Not Given Docusate Sodium (Docusate Sodium 100 Mg/10 Ml Liquid) 50 mg PO BID [facility] Last Admin: 11/07/23 08:46 Dose: 50 mg Guaifenesin/Dextromethorphan (Guaifenesin Dm 200/20/10 Ml 10 Ml Syrup) 10 ml PO TID [facility] Last Admin: 11/07/23 08:47 Dose: 10 ml Hydroxyzine HCl (Hydroxyzine Hcl 25 Mg Tablet) 25 mg PO Q6H PRN PRN Reason: Anxiety Ibuprofen (Ibuprofen 600 Mg Tablet) 600 mg PO Q6H PRN PRN Reason: Pain, Moderate(Pain Scale 4-6) Last Admin: 11/06/23 21:58 Dose: 600 mg Loperamide HCl (Loperamide Hcl 2 Mg Capsule) 2 mg PO Q4H PRN PRN Reason: diarrhoea Last Admin: 11/06/23 18:20 Dose: 2 mg Magnesium Hydroxide (Milk Of Magnesia 30 Ml Oral.Susp) 30 ml PO DAILY PRN PRN Reason: Constipation Last Admin: 11/04/23 11:43 Dose: 30 ml Polyethylene Glycol (Polyethylene Glycol 3350 17 Gm Powd.Pack) 17 gm PO DAILY [facility] Last Admin: 11/07/23 08:45 Dose: 17 gm Prazosin HCl (Prazosin Hcl 5 Mg Capsule) 5 mg PO BEDTIME [facility]; Protocol Last Admin: 11/06/23 21:57 Dose: 5 mg Prazosin HCl (Prazosin Hcl 1 Mg Capsule) 2 mg PO BEDTIME [facility] Last Admin: 11/06/23 21:57 Dose: 2 mg Quetiapine Fumarate (Quetiapine Fumarate 200 Mg Tablet) 200 mg PO BEDTIME [facility] Last Admin: 11/06/23 21:58 Dose: 200 mg Quetiapine Fumarate (Quetiapine Fumarate 50 Mg Tablet) 50 mg PO Q4H PRN PRN Reason: agitation Last Admin: 11/06/23 21:58 Dose: 50 mg Trazodone HCl (Trazodone Hcl 50 Mg Tablet) 50 mg PO BEDTIME MRX1 PRN PRN Reason: Insomnia Allergies Allergies Allergy/AdvReac Type Severity Reaction Status Date / Time lactase [From Dairy Aid] AdvReac Unknown Verified 10/30/23 18:49 Assessment & Plan Assessment & Plan (1) MDD (major depressive disorder), recurrent episode, moderate: Status: Acute Code(s): F33.1 - Major depressive disorder, recurrent, moderate (2) PTSD (post-traumatic stress disorder): Status: Acute Code(s): F43.10 - Post-traumatic stress disorder, unspecified (3) Alcohol use disorder: Status: Acute Code(s): F10.90 - Alcohol use, unspecified, uncomplicated (4) Opioid use disorder: Status: Acute Code(s): F11.90 - Opioid use, unspecified, uncomplicated Plan Patient is a 38 year old male with hx of MDD, PTSD, alcohol use d/o and opioid use d/o, who presented to [facility] [facility] via ambulance from [facility] and was admitted to the ICU for Septic shock d.t multifocal pneumonia. Pt was medically cleared and admitted to M3 d/t suicidal ideation secondary to increased depression. Plan: CV/3 day notice 15 minute safety checks continue home medications referral to outpatient therapist discharge planning 11/04: continue current tx plan. 11/05: Pt reports feeling good today; pt stated, Thank God I woke up this morning. Some people don't get that chance. I just really need a therapist to talk to . Pt denies SI/HI/VH/AH. continue tx plan. 11/06: Keeping to self. Pt reports feeling good today; pt stated, I'm feeling better and ready to go. I have my appointments set up and my medications waiting for me at the pharmacy. I'm just waiting to see a therapist . Pt denies SI/HI/VH/AH. Pt to be discharged tomorrow on 3 day notice. Patient educated on: diagnosis, medication risk/benefits and therapeutic strategies Informed Consent: understands Reason for continued inpatient stay Substantial Risk for: med/psych decompensation Time Spent With Patient Time: Total time managing care of this patient today _20___ minutes.
[2023-11-07 15:14] LABS: Ammonia 46 umol/L (13-55)
[2023-11-07 15:21] LABS: Alanine Aminotransferase 15 U/L (0-40); Albumin Level 4.3 g/dL (3.5-5.0); Alkaline Phosphatase 66 U/L (39-117); Aspartate Amino Transferase 14 U/L (5-37); Bilirubin Direct 0.1 mg/dL (0.0-0.5); Bilirubin Total 0.3 mg/dL (0.0-1.0); Total Protein 8.3 g/dL (6.5-8.0)
[2023-11-07 16:56] LABS: Valproate 52.5 mcg/mL (50.0-100.0)
[2023-11-07] MEDS: Divalproex Sodium 500 MG TABLET.DR 1500 MG PO (21:35)
[2023-11-07] MEDS: Prazosin HCL 5 MG CAPSULE PO (21:35)
[2023-11-07] MEDS: Prazosin HCL 1 MG CAPSULE 2 MG PO (21:36)
[2023-11-07] MEDS: diphenhydrAMINE HCL 25 MG CAPSULE 50 MG PO (21:37)
[2023-11-07] MEDS: QUEtiapine Fumarate 50 MG TABLET PO (21:38)
[2023-11-07] MEDS: QUEtiapine Fumarate 200 MG TABLET PO (21:38)
[2023-11-08 08:00] VITALS: BP 119/59; PULSE 66; TEMP 36.6; O2SAT 95
[2023-11-08] MEDS: guaiFENesin DM 200/20/10 ML 10 ML SYRUP PO (08:46)
[2023-11-08] MEDS: ALPRAZolam 0.5 MG TABLET 1 MG PO (08:46)
[2023-11-08 08:47] VITALS: BP 119/59
[2023-11-08] MEDS: cloNIDine HCL 0.1 MG TABLET PO (08:47)
[2023-11-08] MEDS: Amoxicillin/Potassium Clav 875 MG TABLET PO (08:47)
[2023-11-08] MEDS: buPROPion HCL 75 MG TABLET PO (08:48)
[2023-11-08] MEDS: Ibuprofen 600 MG TABLET PO (08:50)
[2023-11-08] MEDS: Naloxone HCl Nasal TAKE HOME 4 MG SPRAY 8 MG NOSTRILALT (08:53)
[2023-11-08] MEDS: Buprenorphine/Naloxone 8/2 mg FILM 1 FILM SUBLINGUAL (08:53)
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
== END 2023-11-08 11:15 | disposition home or self-care (01) | DRG 751 ==
PROVIDERS: Admitting Provider Registered Nurse; Responsible Provider Registered Nurse; Visit Provider Psychiatry & Neurology Psychiatry
DX: F33.1 Major depressive disorder, recurrent, moderate (principal); F10.91 Alcohol use, unspecified, in remission; K08.89 Other specified disorders of teeth and supporting structures; F11.20 Opioid dependence, uncomplicated; F43.10 Post-traumatic stress disorder, unspecified; Z79.899 Other long term (current) drug therapy
CPT/HCPCS: 36415; 80053; 80061; 80076; 80164; 82140

== ENCOUNTER → 2023-11-03 17:33 | Outpatient (BNV) | payer OTHER, SELFPAY | PROVIDERS: Admitting Provider Registered Nurse; Responsible Provider Registered Nurse; Visit Provider Registered Nurse | DX: F33.1 Major depressive disorder, recurrent, moderate (principal); F43.11 Post-traumatic stress disorder, acute; F10.90 Alcohol use, unspecified, uncomplicated; F11.90 Opioid use, unspecified, uncomplicated | CPT/HCPCS: 90792; 99231; 99232; 99239 ==

== ENCOUNTER → 2023-11-03 17:33 | Outpatient (BNV) | payer OTHER, SELFPAY | PROVIDERS: Admitting Provider Registered Nurse; Responsible Provider Registered Nurse; Visit Provider Physician Assistant | DX: K08.89 Other specified disorders of teeth and supporting structures (principal) | CPT/HCPCS: 99222 ==